=== PATIENT | female | born 1995 | race Caucasian/White ===

== ENCOUNTER 2016-04-30 23:25 | Emergency (ER) | payer OTHER ==
[2016-05-01] MEDS ORDERED: oxyCOD/ACETAMIN 5 MG/325 MG TABLET PO STA (03:46)
[2016-05-01] MEDS ORDERED: oxyCODONE/ACET 5/325 Prepack 4 PO ONE (03:51)
[2016-05-01] MEDS ORDERED: oxyCOD/ACETAMIN 5 MG/325 MG TABLET PO ONE (03:53)
== END 2016-05-01 04:00 | disposition home or self-care (01) ==
DX: R10.2 Pelvic and perineal pain (principal); R11.0 Nausea; F17.200 Nicotine dependence, unspecified, uncomplicated
CPT/HCPCS: 36415; 80053; 81003; 81025; 83690; 85025; 99283; A9270

== ENCOUNTER 2016-05-14 08:49 | Outpatient (CLI) | payer OTHER ==
[2016-05-14] MEDS ORDERED: GADOBUTROL 15 MMOL/15 ML VIAL IVP ONE (09:35)
== END 2016-05-14 08:50 | disposition home or self-care (01) ==
DX: M79.605 Pain in left leg (principal); M79.604 Pain in right leg
CPT/HCPCS: 73725; A9585

== ENCOUNTER 2016-06-28 21:32 | Emergency (ER) | payer OTHER | END 2016-06-28 22:27 | disposition home or self-care (01) | DX: R30.0 Dysuria (principal) ==

== ENCOUNTER 2016-07-17 08:37 | Day surgery (SDC) | payer OTHER ==
[~2016-07-17 08:37] MED LIST: ACETAMINOPHEN 1,000 MG/100 ML 100 ML IV ONE; CELECOXIB 100 MG CAPSULE PO ONE; ceFAZolin 2 GM/50 ML 50 ML IV ONE
[2016-07-17] MEDS ORDERED: LACTATED RINGERS 1,000 ML IV ONE ×2 (08:43→12:50)
[2016-07-17] MEDS ORDERED: MIDAZOLAM 2 MG/2 ML VIAL ONE ×2 (10:11→14:29)
[2016-07-17] MEDS ORDERED: BUPIVACAINE 0.5% PF 30 ML VIAL INFIL ONE ×2 (11:44→12:31)
[2016-07-17] MEDS ORDERED: LIDOCAINE-MPF 2% 5 ML VIAL IM ONE (12:08)
[2016-07-17] MEDS ORDERED: PROPOFOL 200 MG/20 ML VIAL IVP ONE (12:08)
[2016-07-17] MEDS ORDERED: ONDANSETRON 4 MG/2 ML VIAL IVP ONE (12:08)
[2016-07-17] MEDS ORDERED: fentaNYL 100 MCG/2 ML VIAL IVP ONE (12:08)
[2016-07-17] MEDS ORDERED: DEXAMETHASONE 4 MG/ML VIAL IVP ONE (12:08)
[2016-07-17] MEDS ORDERED: MIDAZOLAM 2 MG/2 ML VIAL IVP ONE (12:08)
[2016-07-17] MEDS: HYDROmorphone 1 MG/ML SYRINGE ONE ×2 (12:57→13:03)
[2016-07-17] MEDS ORDERED: oxyCOD/ACETAMIN 5 MG/325 MG TABLET PO ONE (13:24)
== END 2016-07-17 08:38 | disposition home or self-care (01) ==
PROC: 0KNT0ZZ Release Left Lower Leg Muscle, Open Approach (ICD-10-PCS; principal; 2016-07-17 10:30)
DX: T79.A22A Traumatic compartment syndrome of left lower extremity, initial encounter (principal); X58.XXXA Exposure to other specified factors, initial encounter; F17.200 Nicotine dependence, unspecified, uncomplicated
CPT/HCPCS: 27600; 81025; A9270; J0131; J0690; J1170; J7120

== ENCOUNTER 2016-09-04 07:49 | Day surgery (SDC) | payer OTHER ==
[~2016-09-04 07:49] MED LIST changes: -ACETAMINOPHEN 1,000 MG/100 ML 100 ML IV ONE
[2016-09-04 08:17] LABS: HCG UR QUAL NEGATIVE
[2016-09-04] MEDS ORDERED: LACTATED RINGERS 1,000 ML IV ONE ×3 (08:39→09:25)
[2016-09-04] MEDS ORDERED: BUPIVACAINE 0.5% PF 30 ML VIAL SUBQ ONE ×2 (09:24→11:20)
[2016-09-04] MEDS ORDERED: DEXAMETHASONE 4 MG/ML VIAL IVP ONE (10:00)
[2016-09-04] MEDS ORDERED: fentaNYL 100 MCG/2 ML VIAL IVP ONE (10:00)
[2016-09-04] MEDS ORDERED: PROPOFOL 200 MG/20 ML VIAL IVP ONE (10:00)
[2016-09-04] MEDS ORDERED: LIDOCAINE-PF 2% 10 ML AMP SUBQ ONE (10:00)
[2016-09-04] MEDS ORDERED: MIDAZOLAM 2 MG/2 ML VIAL IVP ONE (10:00)
[2016-09-04] MEDS ORDERED: ONDANSETRON 4 MG/2 ML VIAL IVP ONE (10:00)
[2016-09-04] MEDS ORDERED: ACETAMINOPHEN 1,000 MG/100 ML VIAL IV ONE (10:00)
[2016-09-04] MEDS ORDERED: fentaNYL 100 MCG/2 ML VIAL ONE (11:29)
[2016-09-04] MEDS ORDERED: ONDANSETRON 4 MG/2 ML VIAL ONE (12:07)
[2016-09-04] MEDS ORDERED: oxyCOD/ACETAMIN 5 MG/325 MG TABLET PO ONE (12:30)
[2016-09-04 12:43] VITALS: BP 102/67
--- NOTE | 2016-09-07 08:07 | OPERATIVE REPORT ---
DATE OF SURGERY: 09/04/2016 00:00:00 OPERATIVE SURGEON: Commander Anand Rodgers, [facility] PREOPERATIVE DIAGNOSIS: Right leg exertional compartment syndrome. OPERATIVE DIAGNOSIS: Right leg exertional compartment syndrome. OPERATIVE PROCEDURE PERFORMED: Right leg 4-compartment fasciotomies. ANESTHESIA PROVIDER: Diego Miller CRNA. ANESTHESIA TECHNIQUE: General anesthesia via LMA with a femoral popliteal nerve block and local anesthesia at the incision sites. CIRCULATING NURSE: Feroz Patricia RN. DIRECTOR CLINICAL RESEARCH: Ms. MorrellOskar Norma Shakira. START TIME: 0959 hours. CLOSE TIME: 1112 hours. INJECTED SUBSTANCES INCLUDE: Marcaine 0.5% plain 30 mL at the incision site. IV FLUIDS: 500 ML Lactated Ringer's. TEST: hCG was negative. PREOPERATIVE ANTIBIOTICS: Ancef 2 grams ESTIMATED BLOOD LOSS: 5 mL. PREOPERATIVE PREP: ChloraPrep. FINAL COUNTS: Correct. The patient did have a KITA hose and foot pump in place and functioning prior to induction of anesthesia on the left lower extremity. TOURNIQUET TIME: 69 minutes at 250 mmHg. COMPLICATIONS: None. 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 Preoperative workup including vascular studies and Gabriella compartment pressure testing was consistent with exertional compartment syndrome. She was counseled, as far as the findings and options for operative versus nonoperative management , including the risks, benefits, alternatives, and expectations to both operative and nonoperative management, and she preferred to have surgery and received command authorization for surgery. She did have prior left lower extremity 4-compartment fasciotomies performed on 17 July 2016, currently with good relief and desired similar surgery on the right lower extremity. On the day of surgery, she identified the operative site to be her left lower extremity, and it was initialed by the operative surgeon. The patient received a popliteal -femoral nerve block, was then taken back to the operating room, placed in the supine position, and underwent general anesthesia via LMA. After adequate anesthetic control, the patient had a hip bump placed and a tourniquet on her proximal right thigh. She then underwent ChloraPrep and standard sterile draping, followed by a surgical pause to confirm the proper patient, procedure, operative site, position, prophylactic antibiotics, surgical initials, and surgical instrumentation in accordance with the [place] Protocol Procedure Verification. Additional ChloraPrep was then applied to the exposed operative skin and allowed to dry for 3 minutes. Her bony landmarks were outlined with a skin marker along with the incision site for both medial and lateral leg incisions measuring 12 cm. The lower extremity underwent Esmarch exsanguination and inflation of the tourniquet to 250 mmHg. Surgery began with incision over the lateral leg with Bovie electrocautery for hemostasis and blunt dissection down to the fascia, while observing and protecting the superficial branch of the peroneal nerve. The septum was identified, the anterior compartment and lateral compartment fascia nicked, and then Metzenbaum scissors were used to dissect the soft tissue both superior and deep to the fascia. This was then followed by fasciotomies performed under direct visualization to both the anterior and lateral compartments, extending more distal and proximal than the actual incision itself. The wound was then copiously irrigated after confirming full length fasciotomies. Attention was then focused to the medial aspect of the leg, where an incision was placed approximately 1-1/2 fingerbreadths medial to the posterior medial edge of the tibia, followed by an incision with Bovie electrocautery for hemostasis and blunt dissection down to the fascia while identifying and protecting the saphenous nerve and vein. Superficial posterior fascia was identified and released, and further deep dissection was performed to locate the fascia of the posterior deep compartment. This was then elevated off the posterior aspect of the tibia for approximately 12 cm. The wounds were then copiously irrigated, both incisions, and closed with 2-0 Vicryl and 3-0 Monocryl. Following this, the incisions were injected with 0.5 plain Marcaine for postoperative pain control per recommendation of Anesthesia. The wounds were then covered with Mastisol, Steri-Strips, Xeroform, sterile plain gauze, sterile Webril, and an Fitz bandage from mid foot to the knee. She was then placed into a star sleeve foam immobilization device due to the fact that we do not have a CAM boot at the hospital, with her ankle in neutral position. The tourniquet was then deflated. The patient had a warm, pink foot with cap refill less than 2 seconds. She was extubated in the operating room, taken to recovery room in stable condition, and tolerated the procedure well. Her significant other, Mr. Ngo, was then notified via telephone of the intraoperative findings, procedure performed, and postop instructions. Edited and electronically signed: CDR Anand Rodgers [facility] [id number] ([facility] has no access to [employer] ) JOB #: [id number] EXT JOB #:[id number] GREGG
== END 2016-09-04 07:50 | disposition home or self-care (01) ==
LOC: SDS 07:49
PROVIDERS: ATTEND Orthopaedic Surgery
PROC: 0KNS0ZZ Release Right Lower Leg Muscle, Open Approach (ICD-10-PCS; principal; 2016-09-04 09:15)
DX: T79.A21A Traumatic compartment syndrome of right lower extremity, initial encounter (principal); X50.9XXA Other and unspecified overexertion or strenuous movements or postures, initial encounter; F17.200 Nicotine dependence, unspecified, uncomplicated
CPT/HCPCS: 27602; 81025; A9270; J0131; J0690; J7120

== ENCOUNTER 2016-09-10 21:49 | Emergency (ER) | payer OTHER ==
[2016-09-10] MEDS ORDERED: oxyCOD/ACETAMIN 5 MG/325 MG TABLET PO STA (22:33)
[2016-09-10] MEDS ORDERED: oxyCOD/ACETAMIN 5 MG/325 MG TABLET PO ONE (22:36)
[2016-09-10] MEDS ORDERED: LIDOCAINE PATCH 5% TOP SCH (23:00)
--- NOTE | 2016-09-11 00:11 | Ultrasound Report ---
EXAM: RIGHT LOWER EXTREMITY VENOUS ULTRASOUND EXAM DATE: 09/10/2016 11:49 PM. CLINICAL HISTORY: Leg pain and swelling post surgery. Status post right leg fasciotomy. COMPARISON: None. TECHNIQUE: Real-time sonographic vascular imaging was performed by the trouble clerk through the lower extremity utilizing both color-flow and Doppler spectral analysis. Multiple livestock sales representative static ken ges were saved for review. FINDINGS: Common Femoral Vein (CFV): Normal. CFV-GSV Junction: Normal. Profunda Femoral Vein (PFV): Normal. Femoral Vein (FV) Prox: Normal. Femoral Vein (FV) Mid: Normal. Femoral Vein (FV) Dist: Normal. Popliteal Vein: Normal. Posterior Tibial Veins: Limited visualization Peroneal Veins: Not seen. Limited visualization of the calf veins due to bandage and recent surgery scar. Calf veins are not we ll seen. At the right medial mid to distal calf in the soft tissue, there is a 4.1 x 0.8 x 2.3 cm complex flui d collection with internal echoes and septations. This could represent a liquefying hematoma. Abscess not excluded in the appropriate clinical setting. There appears to be a right ankle effusion IMPRESSION: 1. No evidence for deep venous thrombosis. 2. Limited visualization as above. 3. At the right medial mid to distal calf in the soft tissue, there is a 4.1 x 0.8 x 2.3 cm complex f luid collection with internal echoes and septations. This could represent a liquefying hematoma. Absc ess not excluded in the appropriate clinical setting. 4. There appears to be a right ankle effusion. [facility] Referring Provider Line: [phone] SITE ID: [id number]
[2016-09-11] MEDS ORDERED: METOCLOPRAMIDE 10 MG TABLET PO STA (00:49)
--- NOTE | 2016-09-11 00:54 | ED Physician Documentation ---
PD HPI LOWER EXT INJURY - Stated complaint Stated Complaint: RT LEG PX - Chief complaint Chief Complaint: Ext Problem - History obtained from History obtained from: Patient, Friend - History of Present Illness PD HPI LOW EXT INJURY LOCATION: Left, Lower leg Type of injury: Laceration Where injury occurred: Home Timing - onset: How many days ago (6) Timing - details: Abrupt onset Associated symptoms: Discolored Contributing factors: Prior ortho surgery Similar symptoms before: Work up / diagnostics, Treatment, Follow up Recently seen: Surgery - Additional information Additional information: Patient is a 21 year old female with fasciotomy performed on 09/05/16 who is presenting to the emergency department for worsening pain in swelling her surgical leg. patient states that she saw the surgeon yesterday and that an ultrasound did not show a dvt. patient states that the pain persisted today even though she was taking her pain medications. Review of Systems Constitutional: denies: Fever, Chills Eyes: denies: Loss of vision, Decreased vision Ears: denies: Ear pain, Drainage/discharge Nose: denies: Rhinorrhea / runny nose Throat: denies: Oral lesions / sores, Sore throat Cardiac: denies: Chest pain / pressure GI: denies: Abdominal Pain, Nausea, Vomiting Skin: reports: Rash, Lesions Musculoskeletal: reports: Extremity pain, Extremity swelling, Joint swelling Neurologic: denies: Generalized weakness, Focal weakness, Numbness Immunocompromised: denies: Immunocompromised PD PAST MEDICAL HISTORY - Past Medical History Past Medical History: Yes Cardiovascular: Murmur Respiratory: None Endocrine/Autoimmune: None GI: None 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: Ovarian cysts : None HEENT: None Psych: None Musculoskeletal: None Derm: None - Past Surgical History Past Surgical History: Yes HEENT: Myringotomy (tubes), Tonsil/Adenoidectomy - Present Medications Home Medications: Ambulatory Orders Medication Instructions Recorded Confirmed Celecoxib [Celebrex] 400 mg PO DAILY 09/10/16 09/10/16 Cyclobenzaprine [Flexeril] 10 mg PO DAILY 09/10/16 09/10/16 Gabapentin 300 mg PO DAILY 09/10/16 09/10/16 Oxycodone HCl [Oxycontin] 20 tab PO BID 09/10/16 09/10/16 Oxycodone HCl/Acetaminophen 1 tab PO Q4HR PRN 09/10/16 09/10/16 [Percocet 5-325 mg Tablet] Metoclopramide [Reglan] 10 mg PO Q8H PRN #15 tablet 09/11/16 - Allergies Allergies/Adverse Reactions: Allergies Allergy/AdvReac Type Severity Reaction Status Date / Time nickel Allergy Rash Verified 09/10/16 21:53 - Social History Does the pt smoke?: Yes Smoking Status: Current every day smoker Does the pt drink ETOH?: Yes Does the pt have substance abuse?: No - Immunizations Immunizations are current?: Yes - POLST Patient has POLST: No PD ED PE EXPANDED - Extremities Extremities: Right ankle (two surgical incisions, well healing with dependent ecchymosis, edema of right lower extremity. ), Pedal edema R, Pedal Pulses Present, Motor intact, Sensory intact, Vascular intact, Tendon intact Results - Vitals Vitals: Vital Signs - 24 hr 09/10/16 21:54 Temperature 36.6 C Heart Rate 83 Respiratory 16 Rate Blood Pressure 151/94 H O2 Saturation 100 Oxygen O2 Source Room air - Rads (name of study) ultrasound Radiology: Final report received (no dvt, [id number] heterogenous fluid collection) PD MEDICAL DECISION MAKING - ED course Complexity details: reviewed old records, reviewed results, re-evaluated patient , considered differential, d/w patient, d/w community health consultant ED course: Patient was seen and examined at bedside. Patient was treated with percocet for pain and sent for imaging. When patietn returned the results were reviewed. there was most likely a hematoma but abscess could not be excluded. the option of peripheral drainage was give to the patient, but she stated she would follow up with her surgeon tomorrow. Multiple attempts were made to the nav armor reconnaissance vehicle driver physician but they never answered. Patient was well appearing and showed no signs of disseminated disease. patient was stable for discharge with outpatient follow up. Departure - Departure Disposition: 01 Home, Self Care Clinical Impression: Surgical complication Condition: Good Instructions: ED Hematoma Follow-Up: primary,orthopedic [Other] - Tomorrow Prescriptions: Metoclopramide [Reglan] 10 mg PO Q8H PRN #15 tablet PRN Reason: Nausea / Vomiting Comments: There was no sign of a dvt today but there is a fluid collection near the surgical site. The only way to tell what it is exactly is to drain some of the material. You should call your surgeon tomorrow to schedule a follow up appointment. You should continue with the same pain management, but you should try to keep the leg elevated above the heart. You can return to the emergency department at any time for new, worsening or uncontrollable symptoms.
[2016-09-11] MEDS ORDERED: LIDOCAINE PATCH 5% TOP ONE (00:57)
[2016-09-11] MEDS ORDERED: METOCLOPRAMIDE 10 MG TABLET ONE (00:57)
[2016-09-11 01:01] VITALS: BP 117/64
== END 2016-09-11 01:21 | disposition home or self-care (01) ==
LOC: ED 21:49
DX: M96.89 Other intraoperative and postprocedural complications and disorders of the musculoskeletal system (principal); F17.200 Nicotine dependence, unspecified, uncomplicated
CPT/HCPCS: 93971; 99283; A9270

== ENCOUNTER 2016-09-12 20:08 | Emergency (ER) | payer OTHER ==
--- NOTE | 2016-09-12 21:32 | ED Physician Documentation ---
History of Present Illness - Stated complaint Stated Complaint: R LEG PX - Chief complaint Chief Complaint: Ext Problem - History obtained from History obtained from: Patient - History of Present Illness Pain level now: 8 Improved by: no ameliorating factors Worsened by: dependent position RLE - Additonal information Additional information: patient had fasciotomy 09/04 for compartment syndrome and, prior to d/c from hospital she fell onto the RLE, exacerbating her RLE pain. she takes percocet and oxycontin for the post-operative pain but had inadequate control of the pain on 09/10 and thus came to this ED, T+R after pain was adequately controlled. She has had two RLE ultrasounds in the past few days which were negative for DVT, and both evidenced a fluid collection adjacent to the incision site with findings suspicious for hematoma that was liquifying. She was seen yesterday by her doctor and blood tests, including CBC, were unremarkable. She returns to ED at this time due to pain that is again not adequately controlled with her pain medications. She is concerned about the degree of swelling and bruising of the distal leg and the ankle. She says that there was some question as to whether she might have broken something (RLE) when she fell while in the hospital (and that this might have been going unnoticed due to her non-weightbearing on RLE. Review of Systems Constitutional: denies: Fever Cardiac: denies: Chest pain / pressure Respiratory: denies: Dyspnea Musculoskeletal: reports: Extremity pain, Extremity swelling Neurologic: reports: Numbness (RLE distal to knee). denies: Focal weakness PD PAST MEDICAL HISTORY - Past Medical History Past Medical History: Yes Cardiovascular: Murmur Respiratory: None Neuro: None Endocrine/Autoimmune: None GI: None ICU SPECIALIST: Ovarian cysts : None HEENT: None Psych: None Musculoskeletal: None Derm: None - Past Surgical History Past Surgical History: Yes HEENT: Myringotomy (tubes), Tonsil/Adenoidectomy - Present Medications Home Medications: Ambulatory Orders Medication Instructions Recorded Confirmed Celecoxib [Celebrex] 400 mg PO DAILY 09/10/16 09/10/16 Cyclobenzaprine [Flexeril] 10 mg PO DAILY 09/10/16 09/10/16 Gabapentin 300 mg PO DAILY 09/10/16 09/10/16 Oxycodone HCl [Oxycontin] 20 tab PO BID 09/10/16 09/10/16 Oxycodone HCl/Acetaminophen 1 tab PO Q4HR PRN 09/10/16 09/10/16 [Percocet 5-325 mg Tablet] Metoclopramide [Reglan] 10 mg PO Q8H PRN #15 tablet 09/11/16 - Allergies Allergies/Adverse Reactions: Allergies Allergy/AdvReac Type Severity Reaction Status Date / Time nickel Allergy Rash Verified 09/10/16 21:53 - Social History Does the pt smoke?: Yes Smoking Status: Current every day smoker Does the pt drink ETOH?: Yes Does the pt have substance abuse?: No - Immunizations Immunizations are current?: Yes - POLST Patient has POLST: No PD ED PE NORMAL - Vitals Vital signs reviewed: Yes - General General: Alert and oriented X 3, No acute distress, Well developed/nourished PD ED PE EXPANDED - Extremities Extremities: Other (vertical fasciotomy surgical sites are C/D/I without surrounding erythema; there is no discharge nor fluctuance. the RLE has purple echymosis at the ankle, both lateral and medial aspects, with mild pitting edema. the right foot is warm, pink, with 2+ DP pulse, LTS intact, brisk capillary refill) Results - Vitals Vitals: Vital Signs - 24 hr 09/12/16 09/12/16 20:12 23:14 Heart Rate 91 64 Respiratory 17 17 Rate Blood Pressure 131/85 H 125/66 O2 Saturation 98 100 Oxygen O2 Source Room air - Rads (name of study) right tib/fib xrays Radiology: Prelim report reviewed, See rad report right ankle xrays Radiology: Prelim report reviewed, See rad report PD MEDICAL DECISION MAKING - ED course Complexity details: reviewed old records, reviewed results, re-evaluated patient , considered differential, d/w patient Departure - Departure Disposition: 01 Home, Self Care Clinical Impression: Pain in extremity Qualifiers: Extremity pain location: lower extremity Laterality: right Qualified Code(s): M79.604 - Pain in right leg Condition: Good Instructions: ED Post Op Pain Follow-Up: KIZZY Leblanc [Provider Group] Discharge Date/Time: 09/12/16 23:46
[2016-09-12] MEDS ORDERED: HYDROmorphone 1 MG/ML SYRINGE IM STA ×2 (21:56→23:27)
[2016-09-12] MEDS ORDERED: HYDROmorphone 1 MG/ML SYRINGE ONE ×2 (21:59→23:28)
--- NOTE | 2016-09-12 22:33 | XRAY Preliminary Report ---
Exam: XR Ankle 3 View RT IMPRESSION: Normal ankle radiography. [facility] SITE ID: [id number]
--- NOTE | 2016-09-12 22:33 | XRAY Preliminary Report ---
Exam: XR Tib/Fib RT IMPRESSION: Normal tibia/fibula radiography. [facility] SITE ID: [id number]
--- NOTE | 2016-09-12 22:36 | XRAY Report ---
EXAM: RIGHT ANKLE RADIOGRAPHY EXAM DATE: 09/12/2016 10:04 PM. CLINICAL HISTORY: Fall (earlier this month, but has been NWB). COMPARISON: None. TECHNIQUE: 3 views. FINDINGS: Bones: Normal. No fractures or bone lesions. Joints: Normal. No effusion. No subluxations. The ankle mortise is normally aligned. Soft Tissues: Normal. No soft tissue swelling. IMPRESSION: Normal ankle radiography. [facility] Referring Provider Line: [phone] SITE ID: [id number]
--- NOTE | 2016-09-12 22:44 | XRAY Report ---
EXAM: RIGHT TIBIA/FIBULA RADIOGRAPHY EXAM DATE: 09/12/2016 10:04 PM. CLINICAL HISTORY: Fall (earlier this month, but has been non-weight bearing). COMPARISON: None. TECHNIQUE: 2 views. FINDINGS: Bones: Normal. No fracture or bone lesion. Joints: The visualized knee and ankle joints are normal. No effusions. Soft Tissues: Normal. No soft tissue swelling. IMPRESSION: Normal tibia/fibula radiography. [facility] Referring Provider Line: [phone] SITE ID: [id number]
[2016-09-12 23:15] VITALS: BP 125/66
== END 2016-09-12 23:46 | disposition home or self-care (01) ==
LOC: ED 20:08
DX: M79.604 Pain in right leg (principal); R20.0 Anesthesia of skin; F17.200 Nicotine dependence, unspecified, uncomplicated
CPT/HCPCS: 73590; 73610; 96372; 99283; J1170

== ENCOUNTER 2016-09-14 19:42 | Emergency (ER) | payer OTHER ==
[2016-09-14] MEDS ORDERED: oxyCOD/ACETAMIN 5 MG/325 MG TABLET PO STA (20:28)
[2016-09-14] MEDS ORDERED: oxyCOD/ACETAMIN 5 MG/325 MG TABLET PO ONE (20:39)
--- NOTE | 2016-09-14 22:30 | Ultrasound Preliminary Report ---
Exam: US Duplex Lwr Ext Arterial RT IMPRESSION: 1. Unremarkable right lower extremity arterial Doppler evaluation. 2. Medial right calf fluid collection, likely chronic hematoma. [facility] SITE ID: [id number]
--- NOTE | 2016-09-14 22:51 | ED Physician Documentation ---
PD HPI LOWER EXT INJURY - Stated complaint Stated Complaint: R LEG PX - Chief complaint Chief Complaint: Ext Problem - History obtained from History obtained from: Patient - History of Present Illness PD HPI LOW EXT INJURY LOCATION: Right, Lower leg Type of injury: Other (9 days status post 4 compartment fasciotomy of the right lower leg.) Recently seen: Emergency Dept (2 days ago.) - Treatment prior to arrival Treatment prior to arrival: Percocet. - Additional information Additional information: The patient is a 21-year-old female who presents with pain and swelling of her right lower leg. She has a history of chronic exertional compartment syndrome, and underwent 4 compartment fasciotomy upper right lower leg 9 days ago. She had undergone nerve block for the surgery, and when ambulating in PACU postsurgery, she fell. She is concerned about possibility of injury resulting from the fall. She was seen in the emergency department here 2 days ago and x- ray of the right lower extremity revealed no bony abnormality. She returns today because of continued pain and swelling. She had undergone similar fasciotomy of her left lower leg 6 weeks ago and did not have any similar symptoms. Review of Systems Constitutional: denies: Fever Nose: denies: Congestion Cardiac: denies: Chest pain / pressure Respiratory: denies: Dyspnea, Cough GI: denies: Abdominal Pain, Nausea, Vomiting : denies: Dysuria Skin: denies: Rash Musculoskeletal: reports: Extremity pain (right lower leg), Extremity swelling ( right lower leg). 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 : None HEENT: None Psych: None Musculoskeletal: None Derm: None Other Past Medical History: sports induced compartment syndrome - Past Surgical History Past Surgical History: Yes HEENT: Myringotomy (tubes), Tonsil/Adenoidectomy - Present Medications Home Medications: Ambulatory Orders Medication Instructions Recorded Confirmed Celecoxib [Celebrex] 400 mg PO DAILY 09/10/16 09/10/16 Cyclobenzaprine [Flexeril] 10 mg PO DAILY 09/10/16 09/10/16 Gabapentin 300 mg PO DAILY 09/10/16 09/10/16 Oxycodone HCl [Oxycontin] 20 tab PO BID 09/10/16 09/10/16 Oxycodone HCl/Acetaminophen 1 tab PO Q4HR PRN 09/10/16 09/10/16 [Percocet 5-325 mg Tablet] Metoclopramide [Reglan] 10 mg PO Q8H PRN #15 tablet 09/11/16 - Allergies Allergies/Adverse Reactions: Allergies Allergy/AdvReac Type Severity Reaction Status Date / Time nickel Allergy Rash Verified 09/10/16 21:53 - Social History Does the pt smoke?: Yes Smoking Status: Current every day smoker Does the pt drink ETOH?: Yes Does the pt have substance abuse?: No - Immunizations Immunizations are current?: Yes - POLST Patient has POLST: No PD ED PE NORMAL - Vitals Vital signs reviewed: Yes (borderline hypertension initially.) - General General: Alert and oriented X 3, Well developed/nourished - HEENT HEENT: Atraumatic - Cardiac Cardiac: RRR - Respiratory Respiratory: No respiratory distress, Clear bilaterally - Abdomen Abdomen: Soft, Non tender - Derm Derm: No rash - Extremities Extremities: Other (Fasciotomy wounds of the right lower leg appear to be healing without any evidence of infection. There is soft tissue swelling noted at the distal aspect of the anteromedial wound. There is associated ecchymosis. There is slight warmth, but no erythema. Distal neurovascular is intact.) - Neuro Neuro: Alert and oriented X 3, No motor deficit, No sensory deficit Results - Vitals Vitals: Oxygen O2 Source Room air - Rads (name of study) Doppler U/S right leg Radiology: Prelim report reviewed, See rad report (Unremarkable right lower extremity arterial Doppler evaluation. Medial right calf fluid collection, likely chronic hematoma.) PD MEDICAL DECISION MAKING - ED course Complexity details: reviewed old records, reviewed results, re-evaluated patient , considered differential, d/w patient, d/w family ED course: The patient's presentation is most consistent with postsurgical hematoma in the right lower leg. Duplex ultrasound reveals no evidence of thrombus, but does reveal the fluid collection in the medial calf, suggestive of hematoma. Treatment in the emergency room included administration of Percocet 1 tablet orally. I discussed with the patient and her friends the results of the ultrasound, expected course of healing, symptomatic treatment and outpatient follow-up, as well as potentially worrisome signs or symptoms that should prompt reevaluation in the emergency department. Departure - Departure Disposition: 01 Home, Self Care Clinical Impression: Pain of lower extremity Qualifiers: Laterality: right Qualified Code(s): M79.604 - Pain in right leg Hematoma, postoperative Qualifiers: Laterality: right Condition: Stable Instructions: ED Hematoma Follow-Up: [facility]IZ[facility] Leblanc [Provider Group] Comments: Keep your right leg elevated as much the time as possible. You can use pain medication as previously prescribed. Follow up with your orthopedic surgeon as scheduled. Return to the emergency department if you develop increasing pain, any sign of infection, or otherwise worsening symptoms. Discharge Date/Time: 09/14/16 23:08
--- NOTE | 2016-09-14 22:55 | Ultrasound Report ---
EXAM: RIGHT LOWER EXTREMITY ARTERIAL DOPPLER ULTRASOUND EXAM DATE: 09/14/2016 08:51 PM. CLINICAL HISTORY: Right leg pain and swelling. COMPARISON: None. TECHNIQUE: Real-time sonographic vascular imaging was performed by the qualitative researcher, utilizing color-f low, Doppler flow, and spectral analysis. Multiple textiles sales representative static images were saved for review . FINDINGS: Archer scale evaluation of the right lower extremity arteries demonstrates no significant tarik que. There is a 6.3 x 1.0 x 2.9 cm soft tissue fluid collection containing low-level internal echoes medial aspect of the calf. Arterial Doppler evaluation as follows: Right Lower Extremity: CADDYMASTER: PSV 158 cm/sec, triphasic waveform. PSFA: PSV 24 cm/sec, triphasic waveform. MSFA: PSV 86 cm/sec, triphasic waveform. DSFA: PSV 28 cm/sec, triphasic waveform. PFA: PSV 77 cm/sec, biphasic waveform. POP: PSV 57 cm/sec, triphasic waveform. KRISTOFER: PSV 42 cm/sec, biphasic waveform. AIR HAMMER OPERATOR: PSV 71 cm/sec, biphasic waveform. YUNIER: PSV 40 cm/sec, biphasic waveform. DPA: PSV 35 cm/sec, triphasic waveform. IMPRESSION: 1. Unremarkable right lower extremity arterial Doppler evaluation. 2. Medial right calf fluid collection, likely chronic hematoma. [facility] Referring Provider Line: [phone] SITE ID: [id number]
[2016-09-14 23:22] VITALS: BP 102/60
== END 2016-09-14 23:08 | disposition home or self-care (01) ==
LOC: ED 19:42
DX: L76.32 Postprocedural hematoma of skin and subcutaneous tissue following other procedure (principal); Y83.8 Other surgical procedures as the cause of abnormal reaction of the patient, or of later complication, without mention of misadventure at the time of the procedure; G89.18 Other acute postprocedural pain; F17.200 Nicotine dependence, unspecified, uncomplicated
CPT/HCPCS: 93926; 99283; A9270

== ENCOUNTER 2017-01-12 14:28 | Emergency (ER) | payer OTHER ==
[2017-01-12 14:48] VITALS: BP 131/82
[2017-01-12] MEDS ORDERED: DEXAMETHASONE 10 MG/ML VIAL PO STA (16:12)
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
[2017-01-12] MEDS ORDERED: DEXAMETHASONE 10 MG/ML VIAL ONE (16:24)
== END 2017-01-12 16:27 | disposition home or self-care (01) ==
LOC: ED 14:28
DX: M54.12 Radiculopathy, cervical region (principal); R03.0 Elevated blood-pressure reading, without diagnosis of hypertension; F17.200 Nicotine dependence, unspecified, uncomplicated
CPT/HCPCS: 99283

== ENCOUNTER 2017-05-13 14:30 | Emergency (ER) | payer OTHER ==
[2017-05-13 14:38] VITALS: BP 128/83
[2017-05-13] MEDS ORDERED: HYDROcod/ACETAM 5/325 MG TABLET PO STA (15:03)
--- NOTE | 2017-05-13 15:16 | ED Physician Documentation ---
History of Present Illness - Stated complaint Stated Complaint: PAIN/NUMBNESS L ARM AND SHOULDER - Chief complaint Chief Complaint: Ext Problem - History obtained from History obtained from: Patient (pt is here with left shoulder pain. states that this has been going on for a couple years now. has seen her primary care provier and physical therapy. she states that she went to PT the other day and since then her lefts houlder has been more painful, and her left arm has been tingling and painful. no trauma.) Review of Systems Constitutional: denies: Fever, Chills Respiratory: denies: Dyspnea, Cough, Hemoptysis GI: denies: Abdominal Pain Skin: denies: Rash, Lesions Musculoskeletal: reports: Extremity pain (left arm), Joint pain (left shoulder) . 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: Ovarian cysts : None HEENT: None Psych: None Musculoskeletal: None Derm: None - Past Surgical History Past Surgical History: Yes HEENT: Myringotomy (tubes), Tonsil/Adenoidectomy - Present Medications Home Medications: Ambulatory Orders Medication Instructions Recorded Confirmed Gabapentin 300 mg PO DAILY 09/10/16 05/13/17 Methocarbamol [Robaxin] 500 mg PO Q6HR PRN 05/13/17 05/13/17 - Allergies Allergies/Adverse Reactions: Allergies Allergy/AdvReac Type Severity Reaction Status Date / Time nickel Allergy Rash Verified 01/12/17 14:48 - Social History Does the pt smoke?: Yes Smoking Status: Current every day smoker Does the pt drink ETOH?: Yes Does the pt have substance abuse?: No - Immunizations Immunizations are current?: Yes - POLST Patient has POLST: No PD ED PE NORMAL - General General: Alert and oriented X 3, No acute distress - HEENT HEENT: Moist mucous membranes - Neck Neck: Supple, no meningeal sign - Cardiac Cardiac: RRR, No murmur - Respiratory Respiratory: No respiratory distress, Clear bilaterally - Derm Derm: Normal color, Warm and dry - Extremities Extremities: Other (TTP at all point of palpation of the right shoulder. seemed to be most tender over the medial border of the scapula. ) - Neuro Neuro: Alert and oriented X 3, No motor deficit, No sensory deficit Results - Vitals Vitals: Vital Signs - 24 hr 05/13/17 14:36 Temperature 36.7 C Heart Rate 83 Respiratory 17 Rate Blood Pressure 128/83 H O2 Saturation 100 Oxygen O2 Source Room air PD MEDICAL DECISION MAKING - ED course Complexity details: considered differential, d/w patient ED course: pt with tenderness over all point of palpation of the left shoulder. Doubt fracture. will hold on x-rays. suspect MSK. her sx are somewhat similar to thoracic outlet syndrome. discussed this with her. [place] Departure - Departure Disposition: Home, Self Care Clinical Impression: Left shoulder pain Condition: Good Instructions: ED RICE Follow-Up: primary, care provider [Other] Comments: Recommend that you talk to your physical therapy provider and [place] about possible [place]o consult. continue with your medicaions that you already have. return to the ER for any new symptoms.
== END 2017-05-13 15:29 | disposition home or self-care (01) ==
LOC: ED 14:30
DX: M25.512 Pain in left shoulder (principal); F17.200 Nicotine dependence, unspecified, uncomplicated
CPT/HCPCS: 99282; 99283; A9270

== ENCOUNTER 2017-05-28 11:48 | Outpatient (CLI) | payer OTHER ==
--- NOTE | 2017-05-28 16:16 | MRI Report ---
EXAM: MRI CERVICAL SPINE WITHOUT CONTRAST EXAM DATE: 05/28/2017 12:40 PM. CLINICAL HISTORY: Intermittent neck pain for 1-1.5 years. Bilateral arm numbness and tingling, left m ore than right. Radiculopathy, cervical region. COMPARISONS: None. TECHNIQUE: Multiplanar, multisequence T1-weighted and fluid-sensitive sequences of the cervical spine without contrast. Other: None. FINDINGS: Neurologic Structures: There is an approximately 7 x 3 mm mildly T2 hyperintense and slightly T1 hypo intense focus at the left inferolateral aspect of the julio césar (sagittal image 4). No signal abnormality in the visualized spinal cord. Alignment: No scoliosis or spondylolisthesis. Bone Marrow: No gross fractures or bone lesions. No marrow edema. Interspace Levels/Facets: C1-C2: Unremarkable. C2-C3: Unremarkable. C3-C4: Unremarkable. C4-C5: Unremarkable. C5-C6: Unremarkable. C6-C7: Minimal disk bulge. No stenoses. C7-T1: Unremarkable. Musculature: Normal. No edema or fatty atrophy. Other: The paravertebral and prevertebral soft tissues are normal. IMPRESSION: 1. Minimal disk bulge at C6-C7. No stenoses. 2. An indeterminate 7 x 3 mm mildly T2 hyperintense and slightly T1 hyperintense focus at the left in ferolateral aspect of the julio césar. Differential may include a focus of demyelination, vascular insult, o r other lesion. Consider further evaluation with a follow-up brain MRI without and with intravenous c ontrast. [facility] Referring Provider Line: [phone] SITE ID: [id number]
== END 2017-05-28 11:49 | disposition home or self-care (01) ==
LOC: DI 11:48
PROVIDERS: ATTEND Nurse Practitioner Family
DX: M50.823 Other cervical disc disorders at C6-C7 level (principal); R90.89 Other abnormal findings on diagnostic imaging of central nervous system
CPT/HCPCS: 72141

== ENCOUNTER 2017-06-11 12:42 | Outpatient (CLI) | payer OTHER ==
[2017-06-11] MEDS ORDERED: GADOBUTROL 7.5 MMOL/7.5 ML VIAL ONE (13:04)
[2017-06-11] MEDS ORDERED: GADOBUTROL 7.5 MMOL/7.5 ML VIAL IVP ONE (13:54)
--- NOTE | 2017-06-11 14:46 | MRI Report ---
EXAM: MRI BRAIN WITHOUT AND WITH CONTRAST EXAM DATE: 06/11/2017 02:03 PM. CLINICAL HISTORY: 22-year-old with bilateral upper extremity numbness and tingling COMPARISON: MR cervical spine 05/28/2017. TECHNIQUE: Multiplanar, multisequence T1-weighted and fluid-sensitive MR sequences of the brain were performed. Sequences optimized for routine evaluation. Other: None. IV Contrast: 7 cc Gadavist. FINDINGS: Brain Volume: Normal for age. Parenchyma: No acute parenchymal hemorrhage, mass, or midline shift. No definite abnormal areas of T2 /FLAIR signal hyperintensity seen within the supratentorial white matter. There is subtle area of T2/ FLAIR signal hyperintensity seen within the left aspect of julio césar measuring up to 3 mm (series 601, ken ge 8) that when accounting for differences in technique appear unchanged from 05/28/2017. There are pro minent perivascular spaces seen involving the bilateral subinsular regions, greater on the right. The re is restricted diffusion seen to suggest acute infarct. No areas of hemosiderin staining. There is a patchy area of postcontrast enhancement seen within the left aspect of julio césar measuring up to 6 mm (s eries 1002, image 30). No other areas of abnormal postcontrast enhancement seen. Ventricles/Cisterns: No hydrocephalus. No abnormal extra-axial fluid collection or hemorrhage. Orbits: Symmetric and unremarkable. Sella Turcica: The pituitary gland, cavernous sinuses, suprasellar cistern and optic chiasm are unrem arkable. IAC: Symmetric and unremarkable. Vasculature: Normal signal flow void is seen in the major arterial structures at the skull base. The dural sinuses are patent and enhance normally. Sinuses: No acute sinus disease. Bones: No focal pathologic appearing marrow signal changes. Other: None. IMPRESSION: 1. No acute infarct, intracranial hemorrhage, mass, hydrocephalus, or midline shift. 2. Single enhancing T2 hyperintense lesion within the left julio césar that when accounting for differences in technique appears unchanged from 05/28/2017. Finding is nonspecific and potential etiologies include demyelinating plaque, sequela of prior vascular insult, capillary telangiectasia, or other lesion. C orrelation with laboratory values and CSF analysis as well as repeat examination in 3-6 months should be considered. 3. No other abnormal T2 hyperintense lesion or additional areas of abnormal postcontrast enhancement seen. [facility] Referring Provider Line: [phone] SITE ID: [id number]
== END 2017-06-11 12:43 | disposition home or self-care (01) ==
LOC: DI 12:42
PROVIDERS: ATTEND Nurse Practitioner Family
DX: G93.9 Disorder of brain, unspecified (principal)
CPT/HCPCS: 70553; A9585

== ENCOUNTER 2017-11-16 10:26 | Outpatient (CLI) | payer OTHER | END 2017-11-16 10:27 | disposition home or self-care (01) | LOC: SC 10:26 | PROVIDERS: ATTEND Internal Medicine Pulmonary Disease | DX: G47.10 Hypersomnia, unspecified (principal); G47.53 Recurrent isolated sleep paralysis | CPT/HCPCS: 99203; 99212 ==

== ENCOUNTER 2017-11-20 20:15 | Emergency (ER) | payer OTHER ==
[2017-11-20 20:40] LABS: BILIRUBIN,URINE NEGATIVE (NEGATIVE); GLUCOSE, URINE (UA) NEGATIVE (NEGATIVE); KETONES,URINE (UA) 15 mg/dL (NEGATIVE); LEUKOCYTE ESTERASE, URINE NEGATIVE (NEGATIVE); NITRITE,URINE NEGATIVE (NEGATIVE); OCCULT BLOOD,URINE NEGATIVE (NEGATIVE); PROTEIN,URINE NEGATIVE (NEGATIVE); UROBILINOGEN,URINE 0.2 (NORMAL) E.U./dL (NORMAL)
[2017-11-20 20:47] LABS: CLARITY,URINE CLEAR (CLEAR); HCG UR QUAL NEGATIVE
--- NOTE | 2017-11-20 21:05 | ED Physician Documentation ---
PD HPI ABD PAIN - Stated complaint Stated Complaint: BACK PX/ABD PX - Chief complaint Chief Complaint: Abd Pain - History obtained from History obtained from: Patient - History of Present Illness Timing - onset: Today (onset this morning of right mid to lower abd pain and righ flank pain that has increased through the day.) Timing - details: Gradual onset, Still present Quality: Cramping, Aching, Pain Location: RLQ Radiation: Right flank Improved by: No: Laying still Worsened by: Moving, Palpation. No: Breathing Associated symptoms: Nausea. No: Fever, Vomiting, Diarrhea, Constipation, Melena Similar symptoms before: Has not had sx before Recently seen: Not recently seen Review of Systems Constitutional: denies: Fever, Chills, Myalgias Nose: denies: Rhinorrhea / runny nose, Congestion Throat: denies: Sore throat Cardiac: denies: Chest pain / pressure, Palpitations Respiratory: denies: Dyspnea, Cough GI: reports: Abdominal Pain, Nausea. denies: Abdominal Swelling, Vomiting, Constipation, Diarrhea, Bloody / black stool : reports: LMP (1 month ago). 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 : None HEENT: None Psych: None Musculoskeletal: None Derm: None - Past Surgical History Past Surgical History: Yes HEENT: Myringotomy (tubes), Tonsil/Adenoidectomy - Present Medications Home Medications: Ambulatory Orders Medication Instructions Recorded Confirmed Gabapentin 300 mg PO DAILY 09/10/16 05/13/17 Methocarbamol [Robaxin] 500 mg PO Q6HR PRN 05/13/17 05/13/17 Naproxen 375 mg PO BID #20 tablet 11/20/17 Ondansetron Odt [Zofran] 4 mg TL Q6H PRN #15 tablet 11/20/17 - Allergies Allergies/Adverse Reactions: Allergies Allergy/AdvReac Type Severity Reaction Status Date / Time nickel Allergy Rash Verified 11/20/17 20:21 - Social History Does the pt smoke?: Yes Smoking Status: Current every day smoker Does the pt drink ETOH?: Yes Does the pt have substance abuse?: No - Immunizations Immunizations are current?: Yes - POLST Patient has POLST: No PD ED PE NORMAL - Vitals Vital signs reviewed: Yes - General General: Alert and oriented X 3, Well developed/nourished, Other (appears in pain) - HEENT HEENT: Pharynx benign - Neck Neck: Supple, no meningeal sign, No adenopathy - Cardiac Cardiac: RRR, No murmur - Respiratory Respiratory: Clear bilaterally - Abdomen Abdomen: Normal bowel sounds, Soft, Non distended, No organomegaly, Other ( tender RL to right mid abd with local guarding. No percussion tenderness. Right flank with some CVA tenderness. No rebound noted on abd exam. ) - Female Female : Deferred - Back Back: No spinal TTP - Derm Derm: Normal color, Warm and dry - Extremities Extremities: No deformity, No tenderness to palpate, Normal ROM s pain, No edema , No calf tenderness / cord - Neuro Neuro: Alert and oriented X 3, No motor deficit, Normal speech Results - Vitals Vitals: Vital Signs - 24 hr 11/20/17 11/20/17 20:18 21:19 Temperature 36.0 C L Heart Rate 87 63 Respiratory 16 18 Rate Blood Pressure 128/81 H 143/97 H O2 Saturation 100 100 Oxygen O2 Source Room air - Labs Labs: Laboratory Tests 11/20/17 11/20/17 11/20/17 20:29 21:40 21:40 WBC 6.3 RBC 4.26 Hgb 14.2 Hct 39.8 MCV 93.6 MCH 33.4 H MCHC 35.7 RDW 12.3 Plt Count 292 MPV 7.5 L Neut # (Auto) 3.0 Lymph # (Auto) 2.6 [place] # (Auto) 0.5 Eos # (Auto) 0.1 Baso # (Auto) 0.0 Absolute Nucleated RBC 0.01 Nucleated RBC % 0.1 Sodium 136 Potassium 3.2 L Chloride 105 Carbon Dioxide 22 Anion Gap 9.0 BUN 7 Creatinine 0.7 Estimated GFR (MDRD) 103 Glucose 86 Calcium 9.2 Total Bilirubin 0.9 AST 20 ALT 18 Alkaline Phosphatase 49 Total Protein 8.1 Albumin 5.0 Globulin 3.1 Albumin/Globulin Ratio 1.6 Lipase 28 Urine Color YELLOW Urine Clarity CLEAR Urine pH 6.0 Ur Specific [place] 1.010 Urine Protein NEGATIVE Urine Glucose (UA) NEGATIVE Urine Ketones 15 H Urine Occult Blood NEGATIVE Urine Nitrite NEGATIVE Urine Bilirubin NEGATIVE Urine Urobilinogen 0.2 (NORMAL) Ur Leukocyte Esterase NEGATIVE Ur Microscopic Review NOT INDICATED Urine Culture Comments NOT INDICATED Urine HCG, Qual NEGATIVE - Rads (name of study) abd/pelvic CT Radiology: Prelim report reviewed (no kidney stones; intestines normal; ovaries/ pelvic organs grossly normal; gallbladder normal. ) PD MEDICAL DECISION MAKING - ED course Complexity details: reviewed results, considered differential (consider UTI/ kidney stones, appendix, ovarian cysts. It is low tenderness for gallbladder. The exam and history would most likely suggest ureterolithiasis. ), d/w patient - Sepsis Event Vital Signs: Vital Signs - 24 hr 11/20/17 11/20/17 20:18 21:19 Temperature 36.0 C L Heart Rate 87 63 Respiratory 16 18 Rate Blood Pressure 128/81 H 143/97 H O2 Saturation 100 100 Oxygen O2 Source Room air Departure - Departure Disposition: Home, Self Care Clinical Impression: Abdominal pain Qualifiers: Abdominal location: right lower quadrant Qualified Code(s): R10.31 - Right lower quadrant pain Condition: Stable Record reviewed to determine appropriate education?: Yes Instructions: ED Abdominal Pain Unkn Cause Follow-Up: PATRICK LANDEROS MD [Primary Care Provider] - Prescriptions: Naproxen 375 mg PO BID #20 tablet Ondansetron Odt [Zofran] 4 mg TL Q6H PRN #15 tablet PRN Reason: Nausea / Vomiting Comments: The cause of your pain is not clear at this time. There is no signs of kidney stones, gallbladder problems, appendicitis, ovarian cysts, urinary tract infection. I would give it a day or so with some nausea medicine and ibuprofen or Tylenol if needed for pains, hydrocodone for worse pains. Recheck if not improved in the next 1-2 days and return sooner if worsening symptoms. Forms: Activity restrictions
[2017-11-20] MEDS ORDERED: SODIUM CHLORIDE 0.9% 1,000 ML IV ONE (21:30)
[2017-11-20] MEDS ORDERED: MORPHINE 10 MG/ML VIAL IVP STA ×2 (21:30→22:58)
[2017-11-20] MEDS ORDERED: ONDANSETRON 4 MG/2 ML VIAL IVP STA (21:30)
[2017-11-20 21:44] LABS: BASOPHILS % (AUTO) 0.7 %; EOSINOPHILS # (AUTO) 0.1 10^3/uL (0.0-0.7); EOSINOPHILS % (AUTO) 1.7 %; HGB - HEMOGLOBIN 14.2 g/dL (12.0-16.0); LYMPHOCYTES # (AUTO) 2.6 10^3/uL (1.5-3.5); LYMPHOCYTES % (AUTO) 41.8 %; MEAN CORPUSCULAR HEMOGLOBIN 33.4 pg (27.0-31.0); MEAN CORPUSCULAR HGB CONC 35.7 g/dL (32.0-36.0); MEAN CORPUSCULAR VOLUME 93.6 fL (81.0-99.0); MEAN PLATELET VOLUME 7.5 fL (7.9-10.8); MONOCYTES # (AUTO) 0.5 10^3/uL (0.0-1.0); MONOCYTES % (AUTO) 7.6 %; NEUTROPHILS % (AUTO) 48.2 %; PLT - PLATELET COUNT 292 10^3/uL (130-450); RED BLOOD COUNT 4.26 10^6/uL (4.20-5.40); RED CELL DISTRIBUTION WIDTH 12.3 % (12.0-15.0); WHITE BLOOD COUNT 6.3 x10^3/uL (4.8-10.8)
[2017-11-20 21:56] LABS: ALBUMIN/GLOBULIN RATIO 1.6 (1.0-2.2); BILIRUBIN,TOTAL 0.9 mg/dL (0.2-1.0); CALCIUM 9.2 mg/dL (8.5-10.3); CREATININE 0.7 mg/dL (0.4-1.0); TOTAL PROTEIN 8.1 g/dL (6.7-8.2)
--- NOTE | 2017-11-20 22:13 | CT Report ---
Procedure Date: 11/20/2017 Accession Number: [id number] / [id number] Procedure: CT - KUB CPT Code: FULL RESULT: EXAM: CT ABDOMEN AND PELVIS (CT KUB) EXAM DATE: 11/20/2017 10:03 PM. CLINICAL HISTORY: Right abd to flank pain onset this morning. COMPARISONS: ABDOMEN/PELVIS W/ 02/15/2016. TECHNIQUE: Routine axial helical CT imaging was performed through the abdomen and pelvis without IV contrast. Reconstructions: Coronal and sagittal. In accordance with CT protocol optimization, one or more of the following dose reduction techniques were utilized for this exam: automated exposure control, adjustment of mA and/or KV based on patient size, or use of iterative reconstructive technique. FINDINGS: Lung Bases: Unremarkable. Right Kidney/Ureter: No stones, hydronephrosis, or hydroureter. No perinephric fat stranding. Left Kidney/Ureter: No stones, hydronephrosis, or hydroureter. No perinephric fat stranding. Other Solid Organs: Noncontrast images of the solid organs are grossly unremarkable. Gallbladder/Bile Ducts: Unremarkable. Peritoneal Cavity: No free fluid, free air or zulema adenopathy. Bowel is grossly unremarkable. Pelvic Organs: No bladder stones or wall thickening. Noncontrast images of the visualized pelvic organs are unremarkable. Vasculature: Unremarkable. Other: None. IMPRESSION: No urinary tract stones or obstruction. [facility]
[2017-11-20] MEDS ORDERED: HYDROcod/ACET 5/325 Prepack 4 PO STA (22:58)
[2017-11-20] MEDS ORDERED: KETOROLAC 60 MG/2 ML VIAL IVP STA (22:58)
[2017-11-20] MEDS ORDERED: ONDANSETRON ODT 4 MG Prepack 2 TL PRN (22:58)
[2017-11-20 23:25] VITALS: BP 116/76
== END 2017-11-20 23:30 | disposition home or self-care (01) ==
LOC: ED 20:15
DX: R10.31 Right lower quadrant pain (principal)
CPT/HCPCS: 36415; 74176; 80053; 81001; 81003; 81025; 83690; 85025; 87086; 96361; 96374; 96375; 96376; 99283; 99284

== ENCOUNTER 2017-12-15 18:45 | Emergency (ER) | payer OTHER ==
[2017-12-15 20:21] VITALS: BP 120/68
[2017-12-15] MEDS ORDERED: KETOROLAC 60 MG/2 ML VIAL IM STA (20:37)
[2017-12-15] MEDS ORDERED: DEXAMETHASONE 10 MG/ML VIAL PO STA (20:37)
--- NOTE | 2017-12-15 20:38 | ED Physician Documentation ---
PD HPI BACK PAIN - Stated complaint Stated Complaint: BACK PX - Chief complaint Chief Complaint: Back Pain - History obtained from History obtained from: Patient - History of Present Illness Timing - onset: How many days ago (2) Timing - details: Gradual onset, Still present Location: Mid, Lower Quality: Pain, Spasm, Aching Associated symptoms: No: Fever, Weakness, Numbness, Incontinent of urine, Unable to urinate, Hematuria, Incontinent of stool Similar symptoms before: Work up / diagnostics, Treatment Recently seen: Not recently seen - Additional information Additional information: Patient is a 22 year old female presenting to the emergency department for atraumatic back pain. patient states that the pain is in her central back with radiation down both sides. patient states that she has had bulging discs in her cervical and thoracic spine but has never had issues with her lumbar spine until recently. patient reports that she has always had some sensory deprivation on her medial thighs. Patient reports that she has had an indcidental finding of some type of mass in her brain that is being followed. Review of Systems Constitutional: denies: Fever, Chills Eyes: reports: Reviewed and negative Cardiac: denies: Chest pain / pressure, Palpitations Respiratory: denies: Dyspnea, Cough GI: denies: Abdominal Pain, Nausea, Vomiting, Constipation, Diarrhea : denies: Dysuria, Frequency, Unable to Void, Incontinent, Hematuria Skin: denies: Rash, Lesions Musculoskeletal: reports: Back pain Neurologic: denies: Generalized weakness, Focal weakness, Numbness, Difficulty speaking, Headache, LOC Immunocompromised: denies: Immunocompromised PD PAST MEDICAL HISTORY - Past Medical History Past Medical History: Yes Cardiovascular: Murmur Respiratory: None Endocrine/Autoimmune: None GI: None PREBOARDER: Ovarian cysts : None HEENT: None Psych: None Musculoskeletal: None Derm: None - Past Surgical History Past Surgical History: Yes HEENT: Myringotomy (tubes), Tonsil/Adenoidectomy - Present Medications Home Medications: Ambulatory Orders Medication Instructions Recorded Confirmed Gabapentin 300 mg PO DAILY 09/10/16 05/13/17 Methocarbamol [Robaxin] 500 mg PO Q6HR PRN 05/13/17 05/13/17 Naproxen 375 mg PO BID #20 tablet 11/20/17 Ondansetron Odt [Zofran] 4 mg TL Q6H PRN #15 tablet 11/20/17 Dexamethasone [Decadron] 4 mg PO DAILY #5 tablet 12/15/17 - Allergies Allergies/Adverse Reactions: Allergies Allergy/AdvReac Type Severity Reaction Status Date / Time nickel Allergy Rash Verified 12/15/17 19:11 - Social History Does the pt smoke?: Yes Smoking Status: Current every day smoker Does the pt drink ETOH?: Yes Does the pt have substance abuse?: No - Immunizations Immunizations are current?: Yes - POLST Patient has POLST: No PD ED PE NORMAL - Vitals Vital signs reviewed: Yes - General General: Alert and oriented X 3, No acute distress - HEENT HEENT: Atraumatic - Cardiac Cardiac: RRR - Respiratory Respiratory: No respiratory distress, Clear bilaterally - Abdomen Abdomen: Soft, Non tender - Derm Derm: Normal color, Warm and dry - Extremities Extremities: No deformity, No edema - Neuro Neuro: Alert and oriented X 3, No motor deficit, No sensory deficit, Normal speech Eye Opening: Spontaneous PD ED PE EXPANDED - Back Back: Normal ROM, Soft tissue tenderness, Straight leg raise + R, Straight leg raise + L Results - Vitals Vitals: Vital Signs - 24 hr 12/15/17 12/15/17 19:08 20:20 Temperature 35.9 C L 36.7 C Heart Rate 90 77 Respiratory 16 Rate Blood Pressure 124/84 H 120/68 O2 Saturation 100 Oxygen O2 Source Room air PD MEDICAL DECISION MAKING - ED course Complexity details: reviewed old records, reviewed results, re-evaluated patient , considered differential, d/w patient ED course: Patient was seen and examined at bedside. patient was well appearing and in no distress. Patient's straight leg test was positive bilaterally but there was no neurological deficit. Patient did likely have a bulging disc or some impingement but no sign of caudequina. Patient would likely benefit from an MRI but it was not needed emergently. Patient was treated with decadron and toradol and stable for discharge with outpatient follow up. - Sepsis Event Vital Signs: Vital Signs - 24 hr 12/15/17 12/15/17 19:08 20:20 Temperature 35.9 C L 36.7 C Heart Rate 90 77 Respiratory 16 Rate Blood Pressure 124/84 H 120/68 O2 Saturation 100 Oxygen O2 Source Room air Departure - Departure Disposition: 01 Home, Self Care Clinical Impression: Back pain Condition: Good Instructions: ED Neck Back Pain General Follow-Up: Gilberto Castaneda MD [Primary Care Provider] - Tomorrow Prescriptions: Dexamethasone [Decadron] 4 mg PO DAILY #5 tablet Comments: Your symptoms are likely secondary to a bulging disc. the only way to really know is to get an mri. you should continue with your pain medications and muscle relaxers. You should follow up with your doctor for re-evaluation and care. You should return to the emergency department for incontinence, new, worsening or uncontrollable symptoms. Discharge Date/Time: 12/15/17 21:26
== END 2017-12-15 21:26 | disposition home or self-care (01) ==
LOC: ED 18:45
DX: M54.9 Dorsalgia, unspecified (principal); F17.200 Nicotine dependence, unspecified, uncomplicated
CPT/HCPCS: 96372; 99283

== ENCOUNTER 2017-12-16 21:13 | Emergency (ER) | payer OTHER ==
[2017-12-16 21:30] VITALS: BP 132/74
== END 2017-12-16 21:42 | disposition left against medical advice (07) ==
LOC: ED 21:13
DX: Z53.21 Procedure and treatment not carried out due to patient leaving prior to being seen by health care provider (principal)

== ENCOUNTER 2018-01-19 17:48 | Emergency (ER) | payer OTHER ==
--- NOTE | 2018-01-19 18:37 | ED Physician Documentation ---
PD HPI URI - Stated complaint Stated Complaint: COUGH/ALEX/SORE THROAT - Chief complaint Chief Complaint: Resp - History obtained from History obtained from: Patient - History of Present Illness Timing - onset: How many days ago (4) Timing duration: Days (4) Timing details: Abrupt onset, Still present Associated symptoms: Chills, Nasal congestion, Sore throat, Dry cough. No: Fever, Dyspnea, NVD Contributing factors: No: Travel, COPD / asthma Similar symptoms before: Has not had sx before Recently seen: Clinic (seen yesterday and Rx sudafed and some nasal spray. No improvement and is having increased cough.) Review of Systems Constitutional: reports: Fever, Chills, Myalgias Nose: reports: Rhinorrhea / runny nose, Congestion Throat: reports: Sore throat Cardiac: denies: Chest pain / pressure Respiratory: reports: Cough. 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 : None HEENT: None Psych: None Musculoskeletal: None Derm: None - Past Surgical History Past Surgical History: Yes HEENT: Myringotomy (tubes), Tonsil/Adenoidectomy - Present Medications Home Medications: Ambulatory Orders Medication Instructions Recorded Confirmed Baclofen [Lioresal] 12/16/17 Topiramate [Topamax] 12/16/17 12/16/17 Amitriptyline HCl 10 mg PO 01/19/18 Benzonatate [Tessalon] 100 mg PO TID PRN #25 capsule 01/19/18 Dexamethasone [Decadron] 4 mg PO DAILY #5 tablet 01/19/18 Doxycycline Monohydrate 100 mg PO BID #14 tablet 01/19/18 guaiFENesin/CODEINE [Robitussin AC] 10 ml PO Q6H PRN #240 ml 01/19/18 - Allergies Allergies/Adverse Reactions: Allergies Allergy/AdvReac Type Severity Reaction Status Date / Time nickel Allergy Rash Verified 01/19/18 17:54 - Social History Does the pt smoke?: Yes Smoking Status: Current every day smoker Does the pt drink ETOH?: Yes Does the pt have substance abuse?: No - Immunizations Immunizations are current?: Yes - POLST Patient has POLST: No PD ED PE NORMAL - Vitals Vital signs reviewed: Yes - General General: Alert and oriented X 3, No acute distress, Well developed/nourished - HEENT HEENT: Ears normal, Pharynx benign - Neck Neck: Supple, no meningeal sign, No adenopathy - Cardiac Cardiac: RRR, No murmur - Respiratory Respiratory: Clear bilaterally - Abdomen Abdomen: Soft, Non tender - Derm Derm: Normal color, Warm and dry - Neuro Neuro: Alert and oriented X 3, No motor deficit, Normal speech Results - Vitals Vitals: Vital Signs - 24 hr 01/19/18 17:51 Temperature 36.3 C L Heart Rate 67 Respiratory 15 Rate Blood Pressure 126/86 H O2 Saturation 100 Oxygen O2 Source Room air PD MEDICAL DECISION MAKING - ED course Complexity details: considered differential, d/w patient - Sepsis Event Vital Signs: Vital Signs - 24 hr 01/19/18 17:51 Temperature 36.3 C L Heart Rate 67 Respiratory 15 Rate Blood Pressure 126/86 H O2 Saturation 100 Oxygen O2 Source Room air Departure - Departure Disposition: 01 Home, Self Care Clinical Impression: Upper respiratory infection Qualifiers: URI type: unspecified URI Qualified Code(s): J06.9 - Acute upper respiratory infection, unspecified Condition: Stable Record reviewed to determine appropriate education?: Yes Instructions: ED Upper Resp Infec No Abx Tx Follow-Up: Gilberto Castaneda MD [Primary Care Provider] - Prescriptions: Benzonatate [Tessalon] 100 mg PO TID PRN #25 capsule PRN Reason: Cough Dexamethasone [Decadron] 4 mg PO DAILY #5 tablet Doxycycline Monohydrate 100 mg PO BID #14 tablet guaiFENesin/CODEINE [Robitussin AC] 10 ml PO Q6H PRN #240 ml PRN Reason: Cough Comments: This does sound viral with the inflammation heading into the chest and giving the tightness in the chest. I would use Decadron steroid anti-inflammatory daily for the next several days. You can use Tessalon if needed for cough and cough medicine if needed. If you do get more consistent sinus drainage that seems purulent then add the doxycycline. Discharge Date/Time: 01/19/18 19:15
[2018-01-19] MEDS ORDERED: DEXAMETHASONE 10 MG/ML VIAL PO STA (19:03)
[2018-01-19] MEDS ORDERED: BENZONATATE 100 MG CAPSULE PO STA (19:03)
[2018-01-19] MEDS ORDERED: guaiFENesin/CODEINE 5 ML UDC PO STA (19:03)
[2018-01-19 19:17] VITALS: BP 120/77
== END 2018-01-19 19:15 | disposition home or self-care (01) ==
LOC: ED 17:48
DX: J06.9 Acute upper respiratory infection, unspecified (principal); F17.200 Nicotine dependence, unspecified, uncomplicated
CPT/HCPCS: 99283; A9270

== ENCOUNTER 2018-03-03 19:36 | Outpatient (CLI) | payer OTHER | END 2018-03-03 19:37 | disposition home or self-care (01) | LOC: SC 19:36 | PROVIDERS: ATTEND Internal Medicine Pulmonary Disease | DX: G47.10 Hypersomnia, unspecified (principal); R53.83 Other fatigue | CPT/HCPCS: 95810 ==

== ENCOUNTER 2018-03-04 06:28 | Outpatient (CLI) | payer OTHER | END 2018-03-04 06:29 | disposition home or self-care (01) | LOC: SC 06:28 | PROVIDERS: ATTEND Internal Medicine Pulmonary Disease | DX: G47.10 Hypersomnia, unspecified (principal) | CPT/HCPCS: 95805 ==

== ENCOUNTER 2018-03-04 08:00 | Outpatient (CLI) | payer OTHER ==
[2018-03-04 07:07] LABS: MUDS CUTOFF CONCENTRATIONS CUTOFF CONC BELOW:
[2018-03-04 14:08] LABS: AMPHETAMINE SCREEN,URINE NEGATIVE (NEGATIVE); BENZODIAZEPINES SCREEN, URINE NEGATIVE (NEGATIVE); COCAINE SCREEN URINE NEGATIVE (NEGATIVE); METHADONE SCREEN, URINE NEGATIVE (NEGATIVE); METHAMPHETAMINES SCREEN, URINE NEGATIVE (NEGATIVE); OPIATE SCREEN, URINE NEGATIVE (NEGATIVE); OXYCODONE SCREEN, URINE NEGATIVE (NEGATIVE); PROPOXYPHENE SCREEN, URINE NEGATIVE (NEGATIVE); TRICYCLIC ANTIDEPRESSANT,URINE NEGATIVE (NEGATIVE)
== END 2018-03-04 08:01 ==
LOC: LAB.N 08:00
PROVIDERS: ATTEND Internal Medicine Pulmonary Disease
DX: R41.82 Altered mental status, unspecified (principal)
CPT/HCPCS: 80306

== ENCOUNTER 2018-04-06 14:13 | Outpatient (CLI) | payer OTHER | END 2018-04-06 14:14 | disposition home or self-care (01) | LOC: SC 14:13 | PROVIDERS: ATTEND Internal Medicine Pulmonary Disease | DX: G47.11 Idiopathic hypersomnia with long sleep time (principal) | CPT/HCPCS: 99212; 99213 ==

== ENCOUNTER 2018-05-10 10:32 | Outpatient (CLI) | payer OTHER | END 2018-05-10 10:33 | disposition home or self-care (01) | LOC: SC 10:32 | PROVIDERS: ATTEND Internal Medicine Pulmonary Disease | DX: G47.11 Idiopathic hypersomnia with long sleep time (principal) | CPT/HCPCS: 99212; 99213 ==

== ENCOUNTER 2018-06-19 15:51 | Emergency (ER) | payer OTHER ==
--- NOTE | 2018-06-19 16:51 | ED Physician Documentation ---
PD HPI FEMALE - Stated complaint Stated Complaint: LOW BACK PAIN - Chief complaint Chief Complaint: UTI - History obtained from History obtained from: Patient - History of Present Illness Timing - onset: How many weeks ago (few) Timing - duration: Weeks Timing - details: Gradual onset, Waxing and waning Associated symptoms: Back pain (has had right flank pain and dysuria. Seen in clinic today and started on Macrobid for UTI.), Dysuria, Urinary frequency. No: Fever, Vaginal discharge, Genital sore/lesion Contributing factors: No: Exposed to STD Similar symptoms before: Diagnosis (has had back pain intermittently without clear Dx. Has had utis in the past. Denies prior vaginitis. similar pain last fall with CT scan showing no stones nor hydronephrosis and UA clear.) Recently seen: Clinic (today) Review of Systems Constitutional: denies: Fever Nose: denies: Rhinorrhea / runny nose, Congestion Throat: denies: Sore throat Respiratory: denies: Cough GI: reports: Nausea. denies: Vomiting, Diarrhea : reports: Dysuria, Frequency. 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 : None HEENT: None Psych: None Musculoskeletal: None Derm: None - Past Surgical History Past Surgical History: Yes HEENT: Myringotomy (tubes), Tonsil/Adenoidectomy - Present Medications Home Medications: Ambulatory Orders Medication Instructions Recorded Confirmed Baclofen [Lioresal] 12/16/17 Topiramate [Topamax] 12/16/17 12/16/17 Amitriptyline HCl 10 mg PO 01/19/18 Hydrocodone/Acetaminophen [[place] 1 each PO Q6H PRN #20 tablet 06/19/18 5-325 Tablet] Modafinil 100 mg PO BID 06/19/18 06/19/18 Nitrofurantoin Monohyd/M-Cryst 100 mg PO BID 06/19/18 06/19/18 [Nitrofurantoin [place]-Mcr 100 mg] Rizatriptan Benzoate [Maxalt] 10 mg PO PRN 06/19/18 06/19/18 Sulfamethox/Trimeth 800/160 1 each PO BID #14 tablet 06/19/18 [Bactrim Ds 800/160] - Allergies Allergies/Adverse Reactions: Allergies Allergy/AdvReac Type Severity Reaction Status Date / Time nickel Allergy Rash Verified 06/19/18 16:01 - Social History Does the pt smoke?: Yes Smoking Status: Current every day smoker Does the pt drink ETOH?: Yes Does the pt have substance abuse?: No - Immunizations Immunizations are current?: Yes - POLST Patient has POLST: No PD ED PE NORMAL - Vitals Vital signs reviewed: Yes - General General: Alert and oriented X 3, No acute distress, Well developed/nourished - HEENT HEENT: Pharynx benign - Neck Neck: Supple, no meningeal sign, No adenopathy - Cardiac Cardiac: RRR, No murmur - Respiratory Respiratory: Clear bilaterally - Abdomen Abdomen: Normal bowel sounds, Soft, Non tender, Non distended - Back Back: No spinal TTP, Other - Derm Derm: Normal color, Warm and dry, No rash Results - Vitals Vitals: Vital Signs - 24 hr 06/19/18 06/19/18 15:59 18:41 Temperature 36.6 C 36.5 C Heart Rate 96 79 Respiratory 18 16 Rate Blood Pressure 137/72 H 115/66 O2 Saturation 100 100 Oxygen O2 Source Room air - Labs Labs: Laboratory Tests 06/19/18 06/19/18 16:46 16:46 Urine Color YELLOW Urine Clarity CLEAR Urine pH 6.5 Ur Specific [place] 1.025 1.025 Urine Protein NEGATIVE Urine Glucose (UA) NEGATIVE Urine Ketones NEGATIVE Urine Occult Blood NEGATIVE Urine Nitrite NEGATIVE Urine Bilirubin NEGATIVE Urine Urobilinogen 0.2 (NORMAL) Ur Leukocyte Esterase NEGATIVE Ur Microscopic Review NOT INDICATED Urine Culture Comments NOT INDICATED Urine HCG, Qual NEGATIVE - Rads (name of study) kidney U/S Radiology: Prelim report reviewed (normal kidney and visible ureter. ), See rad report PD MEDICAL DECISION MAKING - ED course Complexity details: reviewed results, considered differential, d/w patient Departure - Departure Disposition: 01 Home, Self Care Clinical Impression: Acute right flank pain UTI (urinary tract infection) Qualifiers: Urinary tract infection type: acute cystitis Hematuria presence: without hematuria Qualified Code(s): N30.00 - Acute cystitis without hematuria Condition: Stable Record reviewed to determine appropriate education?: Yes Instructions: ED Flank Pain Uncertain Cause, ED UTI Cystitis Female Follow-Up: Gilberto Castaneda MD [Primary Care Provider] - Prescriptions: Hydrocodone/Acetaminophen [[place]ell 5-325 Tablet] 1 each PO Q6H PRN #20 tablet PRN Reason: Pain Sulfamethox/Trimeth 800/160 [Bactrim Ds 800/160] 1 each PO BID #14 tablet Comments: Your urine test did not look bad here but that may be because it is partly treated. I still would change antibiotics to Bactrim twice daily as it has better tissue penetration assuming your back pain relates to the infection. Your ultrasound appeared normal without any signs of swelling of the kidney so that would preclude a blockage or stone and makes a kidney infection less likely as well. You may be having musculoskeletal back pain. Continue your ibuprofen 2-3 times a day. Add pain medicine if needed short- term. Follow-up with your primary care if not better over the next few days. Discharge Date/Time: 06/19/18 18:42
[2018-06-19 16:57] LABS: BILIRUBIN,URINE NEGATIVE (NEGATIVE); GLUCOSE, URINE (UA) NEGATIVE (NEGATIVE); KETONES,URINE (UA) NEGATIVE (NEGATIVE); LEUKOCYTE ESTERASE, URINE NEGATIVE (NEGATIVE); NITRITE,URINE NEGATIVE (NEGATIVE); OCCULT BLOOD,URINE NEGATIVE (NEGATIVE); PH,URINE 6.5 PH (5.0-7.5); PROTEIN,URINE NEGATIVE (NEGATIVE); UROBILINOGEN,URINE 0.2 (NORMAL) E.U./dL (NORMAL)
[2018-06-19 17:02] LABS: CLARITY,URINE CLEAR (CLEAR); HCG UR QUAL NEGATIVE
[2018-06-19] MEDS ORDERED: HYDROcod/ACETAM 5/325 MG TABLET PO STA (17:11)
[2018-06-19] MEDS ORDERED: SULFAMETH/TRIMETH DS 800/160 MG TABLET PO STA (17:11)
--- NOTE | 2018-06-19 18:20 | Ultrasound Report ---
Reason: right flank pain for couple weeks Procedure Date: 06/19/2018 Accession Number: [id number] / [id number] Procedure: US - Retroperitoneal Limited CPT Code: FULL RESULT: EXAM: RENAL ULTRASOUND EXAM DATE: 06/19/2018 06:00 PM. CLINICAL HISTORY: Right flank pain for couple weeks. COMPARISON: [facility] 11/20/2017 9:56 PM. TECHNIQUE: Real-time scanning was performed with static images obtained. FINDINGS: Right Kidney: 10.9 x 5.9 x 5.5 cm. The resistive index measures . Normal echotexture with no stones, contour-deforming masses, or hydronephrosis. Left Kidney: 11.5 x 4.5 x 5.6 cm. The resistive index measures . Normal echotexture with no stones, contour-deforming masses, or hydronephrosis. Bladder: Bilateral jets seen. The prevoid bladder volume was not measured. The postvoid bladder volume was 55 cc. Other: None. IMPRESSION: 1. Kidneys appear normal in size with no hydronephrosis or visualized stone. RADIA
[2018-06-19 18:42] VITALS: BP 115/66
== END 2018-06-19 18:42 | disposition home or self-care (01) ==
LOC: ED 15:51
DX: N30.00 Acute cystitis without hematuria (principal)
CPT/HCPCS: 76775; 81003; 81025; 99283; A9270; 81001; 87086

== ENCOUNTER 2018-06-25 08:13 | Emergency (ER) | payer OTHER ==
--- NOTE | 2018-06-25 10:25 | ED Physician Documentation ---
History of Present Illness - Stated complaint Stated Complaint: FLU LIKE SYMPTOMS - Chief complaint Chief Complaint: General - History obtained from History obtained from: Patient - Additonal information Additional information: The patient is a 23-year-old female who presents with generalized myalgias that started last night, with associated fever. She reports headache, sore throat, and lower abdominal pain radiating to her lower back. She denies cough, nausea or vomiting. 1 week ago she was diagnosed with urinary tract infection and was started on Macrobid. 6 days ago she was seen in the emergency department here with low back pain, and the antibiotic was switched to Bactrim, which she is still taking. The urinalysis was subsequently negative. Her test was negative, and kidney ultrasound was normal. Coworkers have been sick with similar viral symptoms. Review of Systems Constitutional: reports: Fever, Myalgias, Fatigue Eyes: denies: Irritation Ears: denies: Ear pain Nose: reports: Congestion Throat: reports: Sore throat Cardiac: denies: Chest pain / pressure Respiratory: denies: Dyspnea, Cough GI: reports: Abdominal Pain (lower). denies: Nausea, Vomiting : denies: Dysuria Skin: denies: Lesions Musculoskeletal: reports: Back pain Neurologic: reports: Headache. 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: Ovarian cysts : None HEENT: None Psych: None Musculoskeletal: None Derm: None - Past Surgical History Past Surgical History: Yes HEENT: Myringotomy (tubes), Tonsil/Adenoidectomy - Present Medications Home Medications: Ambulatory Orders Medication Instructions Recorded Confirmed Baclofen [Lioresal] 12/16/17 Topiramate [Topamax] 12/16/17 12/16/17 Amitriptyline HCl 10 mg PO 01/19/18 Hydrocodone/Acetaminophen [[place] 1 each PO Q6H PRN #20 tablet 06/19/18 5-325 Tablet] Modafinil 100 mg PO BID 06/19/18 06/19/18 Nitrofurantoin Monohyd/M-Cryst 100 mg PO BID 06/19/18 06/19/18 [Nitrofurantoin [place]-Mcr 100 mg] Rizatriptan Benzoate [Maxalt] 10 mg PO PRN 06/19/18 06/19/18 Sulfamethox/Trimeth 800/160 1 each PO BID #14 tablet 06/19/18 [Bactrim Ds 800/160] Ibuprofen [Ibu] 800 mg PO TID PRN #30 tablet 06/25/18 - Allergies Allergies/Adverse Reactions: Allergies Allergy/AdvReac Type Severity Reaction Status Date / Time nickel Allergy Rash Verified 06/25/18 08:34 - Social History Does the pt smoke?: Yes Smoking Status: Current every day smoker Does the pt drink ETOH?: Yes Does the pt have substance abuse?: No - Immunizations Immunizations are current?: Yes - POLST Patient has POLST: No PD ED PE NORMAL - Vitals Vital signs reviewed: Yes (normal) - General General: Alert and oriented X 3, Well developed/nourished, Other (Appears miserable.) - HEENT HEENT: Atraumatic, EOMI, Ears normal, Pharynx benign - Neck Neck: Supple, no meningeal sign, No adenopathy - Cardiac Cardiac: RRR, No murmur - Respiratory Respiratory: Clear bilaterally - Abdomen Abdomen: Soft, Non tender - Back Back: No CVA TTP - Derm Derm: No rash - Extremities Extremities: No edema, No calf tenderness / cord - Neuro Neuro: Alert and oriented X 3, No motor deficit, Normal speech Results - Vitals Vitals: Oxygen O2 Source Room air - Labs Labs: Laboratory Tests 06/25/18 08:35 Influenza A (Rapid) Negative Influenza B (Rapid) Negative PD MEDICAL DECISION MAKING - ED course Complexity details: reviewed old records, re-evaluated patient, considered differential, d/w patient, d/w family ED course: The patient's presentation is most consistent with acute viral syndrome. Her presentation does not suggest meningitis or pneumonia. Influenza swab is negative. Urinalysis from 6 days ago is negative, and renal ultrasound at that time was negative. There is no clinical indication to repeat those studies. Treatment in the emergency department included administration of ibuprofen 800 mg orally. She is being discharged with prescription for ibuprofen. 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 Departure - Departure Disposition: 01 Home, Self Care Clinical Impression: Viral syndrome Condition: Stable Instructions: ED Viral Syndrome Follow-Up: Gilberto Castaneda MD [Primary Care Provider] - Prescriptions: Ibuprofen [Ibu] 800 mg PO TID PRN #30 tablet PRN Reason: Pain Comments: Drink plenty of fluids. You can use ibuprofen 3 times daily as needed for fever or achiness. Follow-up with your primary physician within 1-2 weeks. Call to schedule an appointment. Return to the emergency department if you develop increasing headache, increasing abdominal pain, or otherwise worsening symptoms. Forms: Activity restrictions Discharge Date/Time: 06/25/18 10:36
[2018-06-25] MEDS ORDERED: IBUPROFEN 800 MG TABLET PO STA (10:27)
[2018-06-25 10:35] VITALS: BP 125/74
== END 2018-06-25 10:36 | disposition home or self-care (01) ==
LOC: ED 08:13
DX: B34.9 Viral infection, unspecified (principal); F17.200 Nicotine dependence, unspecified, uncomplicated
CPT/HCPCS: 87275; 87276; 99283; A9270

== ENCOUNTER 2018-07-08 19:41 | Emergency (ER) | payer OTHER ==
[2018-07-08 20:08] LABS: BILIRUBIN,URINE NEGATIVE (NEGATIVE); GLUCOSE, URINE (UA) NEGATIVE (NEGATIVE); KETONES,URINE (UA) NEGATIVE (NEGATIVE); LEUKOCYTE ESTERASE, URINE NEGATIVE (NEGATIVE); NITRITE,URINE NEGATIVE (NEGATIVE); OCCULT BLOOD,URINE NEGATIVE (NEGATIVE); PROTEIN,URINE NEGATIVE (NEGATIVE); UROBILINOGEN,URINE 0.2 (NORMAL) E.U./dL (NORMAL)
[2018-07-08 20:22] LABS: CLARITY,URINE CLEAR (CLEAR); HCG UR QUAL NEGATIVE
[2018-07-08 20:35] LABS: BASOPHILS # (AUTO) 0.1 10^3/uL (0.0-0.1); BASOPHILS % (AUTO) 0.9 %; EOSINOPHILS # (AUTO) 0.1 10^3/uL (0.0-0.7); EOSINOPHILS % (AUTO) 1.5 %; HGB - HEMOGLOBIN 12.7 g/dL (12.0-16.0); LYMPHOCYTES % (AUTO) 37.5 %; MEAN CORPUSCULAR HEMOGLOBIN 32.7 pg (27.0-31.0); MEAN CORPUSCULAR VOLUME 96.1 fL (81.0-99.0); MEAN PLATELET VOLUME 7.1 fL (7.9-10.8); MONOCYTES # (AUTO) 0.7 10^3/uL (0.0-1.0); MONOCYTES % (AUTO) 9.2 %; NEUTROPHILS # (AUTO) 4.1 10^3/uL (1.5-6.6); NEUTROPHILS % (AUTO) 50.9 %; PLT - PLATELET COUNT 442 10^3/uL (130-450); RED BLOOD COUNT 3.89 10^6/uL (4.20-5.40); RED CELL DISTRIBUTION WIDTH 11.9 % (12.0-15.0)
[2018-07-08 20:47] LABS: ALBUMIN 4.1 g/dL (3.2-5.5); ALBUMIN/GLOBULIN RATIO 1.3 (1.0-2.2); BILIRUBIN,TOTAL 0.6 mg/dL (0.2-1.0); CALCIUM 8.7 mg/dL (8.5-10.3); CREATININE 0.6 mg/dL (0.4-1.0); TOTAL PROTEIN 7.3 g/dL (6.7-8.2)
--- NOTE | 2018-07-08 21:29 | ED Physician Documentation ---
PD HPI ABD PAIN - Stated complaint Stated Complaint: ABD PX/FEVER/MIGRAINE - Chief complaint Chief Complaint: Abd Pain - History obtained from History obtained from: Patient - History of Present Illness Timing - onset: How many weeks ago (3) Timing - duration: Weeks (3) Timing - details: Gradual onset Pain level max: 7 Pain level now: 5 Quality: Aching, Pain Location: Other (R flank) Radiation: Other (non-radiating) Improved by: Other (nothing) Worsened by: No: Eating, Moving, Breathing, Position, Palpation Associated symptoms: Fever (subjective). No: Nausea, Hematemesis, Diarrhea, Constipation, Melena, Hematochezia, Dysuria, Hematuria, Chest pain Similar symptoms before: Diagnosis ("kidney infections, ovarian cysts") Recently seen: Not recently seen Review of Systems Nose: denies: Rhinorrhea / runny nose, Congestion GI: denies: Nausea, Vomiting, Diarrhea : denies: Dysuria, Frequency, Hesitancy, Now EGA Skin: denies: Rash Musculoskeletal: denies: Neck pain Neurologic: reports: Headache (intermittent) PD PAST MEDICAL HISTORY - Past Medical History Past Medical History: Yes Cardiovascular: Murmur Respiratory: None Endocrine/Autoimmune: None GI: None 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 : None HEENT: None Psych: None Musculoskeletal: None Derm: None - Past Surgical History Past Surgical History: Yes HEENT: Myringotomy (tubes), Tonsil/Adenoidectomy - Present Medications Home Medications: Ambulatory Orders Medication Instructions Recorded Confirmed Baclofen [Lioresal] 10 mg PO DAILY 12/16/17 07/08/18 Topiramate [Topamax] 100 mg PO DAILY 12/16/17 07/08/18 Amitriptyline HCl 10 mg PO DAILY 01/19/18 07/08/18 Modafinil 100 mg PO BID 06/19/18 07/08/18 Rizatriptan Benzoate [Maxalt] 10 mg PO DAILY 06/19/18 07/08/18 Ibuprofen [Ibu] 800 mg PO TID PRN #30 tablet 06/25/18 07/08/18 Ibuprofen [Motrin] 800 mg PO Q8H PRN #30 tablet 07/08/18 - Allergies Allergies/Adverse Reactions: Allergies Allergy/AdvReac Type Severity Reaction Status Date / Time nickel Allergy Rash Verified 07/08/18 19:48 - Social History Does the pt smoke?: Yes Smoking Status: Current every day smoker Does the pt drink ETOH?: Yes Does the pt have substance abuse?: No - Immunizations Immunizations are current?: Yes - POLST Patient has POLST: No PD ED PE NORMAL - Vitals Vital signs reviewed: Yes - General General: Alert and oriented X 3, No acute distress, Well developed/nourished - HEENT HEENT: PERRL, Ears normal, Moist mucous membranes, Pharynx benign - Neck Neck: Supple, no meningeal sign, No bony TTP - Cardiac Cardiac: RRR, No murmur, Strong equal pulses - Respiratory Respiratory: No respiratory distress, Clear bilaterally - Abdomen Abdomen: Normal bowel sounds, Soft, Non tender, Non distended - Back Back: No CVA TTP, No spinal TTP - Derm Derm: Warm and dry - Extremities Extremities: No edema, No calf tenderness / cord - Neuro Neuro: Alert and oriented X 3 - Psych Psych: Normal mood, Normal affect Results - Vitals Vitals: Vital Signs - 24 hr 07/08/18 07/08/18 07/08/18 19:42 20:14 21:41 Temperature 36.7 C 37.1 C 37.1 C Heart Rate 106 H 74 Respiratory 16 14 Rate Blood Pressure 137/70 H 115/77 O2 Saturation 100 99 Oxygen O2 Source Room air - Labs Labs: Laboratory Tests 07/08/18 07/08/18 07/08/18 19:55 20:23 20:23 WBC 8.0 RBC 3.89 L Hgb 12.7 Hct 37.4 MCV 96.1 MCH 32.7 H MCHC 34.0 RDW 11.9 L Plt Count 442 MPV 7.1 L Neut # (Auto) 4.1 Lymph # (Auto) 3.0 Piute # (Auto) 0.7 Eos # (Auto) 0.1 Baso # (Auto) 0.1 Absolute Nucleated RBC 0.00 Nucleated RBC % 0.0 Sodium 135 Potassium 3.1 L Chloride 104 Carbon Dioxide 21 Anion Gap 10.0 BUN 12 Creatinine 0.6 Estimated GFR (MDRD) 122 Glucose 132 H Calcium 8.7 Total Bilirubin 0.6 AST 27 ALT 30 Alkaline Phosphatase 38 L Total Protein 7.3 Albumin 4.1 Globulin 3.2 Albumin/Globulin Ratio 1.3 Lipase 51 Urine Color YELLOW Urine Clarity CLEAR Urine pH 7.0 Ur Specific [place] 1.015 Urine Protein NEGATIVE Urine Glucose (UA) NEGATIVE Urine Ketones NEGATIVE Urine Occult Blood NEGATIVE Urine Nitrite NEGATIVE Urine Bilirubin NEGATIVE Urine Urobilinogen 0.2 (NORMAL) Ur Leukocyte Esterase NEGATIVE Ur Microscopic Review NOT INDICATED Urine Culture Comments NOT INDICATED Urine HCG, Qual NEGATIVE PD MEDICAL DECISION MAKING - ED course Complexity details: reviewed results, re-evaluated patient, considered differential, d/w patient, d/w family ED course: 23-year-old female presents the emergency department with right flank pain of unclear etiology. She has had several viral illnesses recently, possible mesenteric adenitis? Abdomen is soft, nontender nondistended. No evidence of appendicitis. Normal white count. No evidence of peritonitis. No evidence of ureteral stone. No hematuria. She is very well-appearing, nontoxic. Declines pain medication here. Will follow up with her doctor for further care. Patient counseled regarding signs and symptoms for which I believe and urgent re- evaluation would be necessary. Patient with good understanding of and agreement to plan and is comfortable going home at this time This document was made in part using voice recognition software. While efforts are made to proofread this document, sound alike and grammatical errors may occur. Departure - Departure Disposition: 01 Home, Self Care Clinical Impression: Abdominal pain Qualifiers: Abdominal location: unspecified location Qualified Code(s): R10.9 - Unspecified abdominal pain Condition: Good Instructions: ED Abdominal Pain Unkn Cause Follow-Up: Gilberto Castaneda MD [Primary Care Provider] - Within 1 week Prescriptions: Ibuprofen [Motrin] 800 mg PO Q8H PRN #30 tablet PRN Reason: PAIN &/OR FEVER Comments: He can use the Motrin as needed for pain. Return if you worsen. Your laboratory testing is normal tonight. Follow-up with your doctor for further care. Discharge Date/Time: 07/08/18 21:55
[2018-07-08 21:42] VITALS: BP 115/77
== END 2018-07-08 21:55 | disposition home or self-care (01) ==
LOC: ED 19:41
DX: R10.9 Unspecified abdominal pain (principal); F17.200 Nicotine dependence, unspecified, uncomplicated
CPT/HCPCS: 36415; 80053; 81001; 81003; 81025; 83690; 85025; 87086; 99283

== ENCOUNTER 2018-07-09 21:33 | Emergency (ER) | payer OTHER ==
--- NOTE | 2018-07-10 01:07 | ED Physician Documentation ---
PD HPI ABD PAIN - Stated complaint Stated Complaint: ABD PX - Chief complaint Chief Complaint: Abd Pain - History obtained from History obtained from: Patient - History of Present Illness Timing - onset: How many days ago (2) Timing - duration: Days Timing - details: Gradual onset, Constant, Waxing and waning Pain level now: 6 Quality: Pain Location: RLQ Improved by: Laying still, Position Worsened by: Moving, Palpation Associated symptoms: Nausea. No: Fever, Vomiting, Constipation Similar symptoms before: No diagnosis, Work up / diagnostics (T+R from this ED yestersay, blood tests and urinalysis were unremarkable (also had (-) urine hcg). she went to [facility] for f/u but patient says they advised her to come here instead) Recently seen: Emergency Dept Review of Systems Constitutional: reports: Reviewed and negative Cardiac: reports: Reviewed and negative Respiratory: reports: Reviewed and negative GI: reports: Abdominal Pain, Nausea. 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 : None HEENT: None Psych: None Musculoskeletal: None Derm: None - Past Surgical History Past Surgical History: Yes HEENT: Myringotomy (tubes), Tonsil/Adenoidectomy - Present Medications Home Medications: Ambulatory Orders Medication Instructions Recorded Confirmed Baclofen [Lioresal] 10 mg PO DAILY 12/16/17 07/08/18 Topiramate [Topamax] 100 mg PO DAILY 12/16/17 07/08/18 Amitriptyline HCl 10 mg PO DAILY 01/19/18 07/08/18 Modafinil 100 mg PO BID 06/19/18 07/08/18 Rizatriptan Benzoate [Maxalt] 10 mg PO DAILY 06/19/18 07/08/18 Ibuprofen [Ibu] 800 mg PO TID PRN #30 tablet 06/25/18 07/08/18 Ibuprofen [Motrin] 800 mg PO Q8H PRN #30 tablet 07/08/18 Hydrocodone/Acetaminophen 1 - 2 each PO Q6H PRN #10 tablet 07/10/18 [Hydrocodon-Acetaminophen 5-325] - Allergies Allergies/Adverse Reactions: Allergies Allergy/AdvReac Type Severity Reaction Status Date / Time nickel Allergy Rash Verified 07/09/18 22:07 - Social History Does the pt smoke?: Yes Smoking Status: Current every day smoker Does the pt drink ETOH?: Yes Does the pt have substance abuse?: No - Immunizations Immunizations are current?: Yes - POLST Patient has POLST: No PD ED PE NORMAL - Vitals Vital signs reviewed: Yes - General General: Alert and oriented X 3, No acute distress, Well developed/nourished - Cardiac Cardiac: RRR, No murmur - Respiratory Respiratory: No respiratory distress, Clear bilaterally - Abdomen Abdomen: Normal bowel sounds, Soft, Non distended, Other (mild/moderate RLQ tenderness without guarding or rebound. (+) rovsings sign) - Back Back: No CVA TTP Results - Vitals Vitals: Oxygen O2 Source Room air - Rads (name of study) CT A/P Radiology: Prelim report reviewed, See rad report PD MEDICAL DECISION MAKING - ED course Complexity details: reviewed results, re-evaluated patient, considered differential, d/w patient Departure - Departure Disposition: 01 Home, Self Care Clinical Impression: Abdominal pain Condition: Good Instructions: ED Abdominal Pain Unkn Cause Follow-Up: Gilberto Castaneda MD [Primary Care Provider] - Within 3 Days Prescriptions: Hydrocodone/Acetaminophen [Hydrocodon-Acetaminophen 5-325] 1 - 2 each PO Q6H PRN #10 tablet PRN Reason: pain Discharge Date/Time: 07/10/18 04:37
[2018-07-10] MEDS ORDERED: KETOROLAC 30 MG/ML VIAL IVP STA (01:17)
[2018-07-10] MEDS ORDERED: ONDANSETRON 4 MG/2 ML VIAL IVP STA (01:17)
[2018-07-10] MEDS ORDERED: IOPAMIDOL-300 100 ML VIAL ONE (01:43)
[2018-07-10] MEDS ORDERED: IOPAMIDOL-300 100 ML VIAL IVP ONE (02:02)
--- NOTE | 2018-07-10 02:25 | CT Report ---
Reason: abd. pain Procedure Date: 07/10/2018 Accession Number: [id number] / [id number] Procedure: CT - Abdomen/Pelvis W CPT Code: FULL RESULT: EXAM: CT ABDOMEN AND PELVIS EXAM DATE: 07/10/2018 02:04 AM. CLINICAL HISTORY: Abdominal pain. COMPARISONS: KUB 11/20/2017 9:56 PM. TECHNIQUE: Routine helical CT imaging was performed through the abdomen and pelvis. IV contrast: Yes . Enteric contrast: No . Reconstructions: Coronal and sagittal. In accordance with CT protocol optimization, one or more of the following dose reduction techniques were utilized for this exam: automated exposure control, adjustment of mA and/or KV based on patient size, or use of iterative reconstructive technique. FINDINGS: Lung Bases: Unremarkable. Liver: Unremarkable. No suspicious masses. Gallbladder/Bile Ducts: Unremarkable. Spleen: Unremarkable. Pancreas: Unremarkable. Adrenal Glands: Unremarkable. Kidneys: Unremarkable. No suspicious masses or hydronephrosis. Peritoneal Cavity/Bowel: No bowel obstruction or inflammatory process seen. No free air or significant free fluid. No masses or adenopathy. The appendix is normal. No excessive stool burden. Pelvic Organs: Bladder, uterus, and adnexa appear unremarkable with note of a small right ovarian corpus luteum. Vasculature: No aneurysms or other significant abnormality. Bones: No significant abnormality. Other: None. IMPRESSION: Normal abdomen and pelvis CT. RADIA
[2018-07-10] MEDS ORDERED: HYDROcod/ACETAM 5/325 MG TABLET PO STA (04:22)
[2018-07-10 04:36] VITALS: BP 118/80
== END 2018-07-10 04:37 | disposition home or self-care (01) ==
LOC: ED 21:33
DX: R10.31 Right lower quadrant pain (principal); F17.200 Nicotine dependence, unspecified, uncomplicated
CPT/HCPCS: 74177; 96374; 99283; A9270; Q9967

== ENCOUNTER 2018-08-09 09:00 | Outpatient (CLI) | payer OTHER | END 2018-08-09 09:01 | disposition home or self-care (01) | LOC: SC 09:00 | PROVIDERS: ATTEND Internal Medicine Pulmonary Disease | DX: G47.11 Idiopathic hypersomnia with long sleep time (principal) | CPT/HCPCS: 99212; 99213 ==

== ENCOUNTER 2018-09-05 17:40 | Emergency (ER) | payer OTHER ==
[2018-09-05 17:48] VITALS: BP 130/59
[2018-09-05] MEDS ORDERED: CHERRY SYRUP 10 ML UDC PO ONE ×2 (18:02→18:07)
[2018-09-05] MEDS ORDERED: DEXAMETHASONE 10 MG/ML VIAL PO STA ×2 (18:02→18:07)
--- NOTE | 2018-09-05 18:05 | ED Physician Documentation ---
PD HPI URI - Stated complaint Stated Complaint: COUGH/CHEST CONGESTION - Chief complaint Chief Complaint: Resp - History obtained from History obtained from: Patient, Family - History of Present Illness Timing - onset: How many days ago (10-14) Timing duration: Days (10) Timing details: Gradual onset, Still present Associated symptoms: Nasal congestion, Rhinorrhea, Sinus pain, Sore throat, Productive cough Contributing factors: Sick contact Improves by: Rest, Medication Worsened by: Activity Similar symptoms before: Diagnosis (sinusitis and otitis) Recently seen: Clinic - Additional information Additional information: 23-year-old active [employer] [place] female has developed a cough and congestion over the past 10 to 14 days and she has been into see her medical provider and has been using symptomatic relief with some improvement while she takes her medications. She has had a progression of the underlying illness. She has cough productive of yellow and green phlegm sinus pressure and drainage as well as some morning shortness of breath. 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 : None HEENT: None Psych: None Musculoskeletal: None Derm: None - Past Surgical History Past Surgical History: Yes HEENT: Myringotomy (tubes), Tonsil/Adenoidectomy - Present Medications Home Medications: Ambulatory Orders Medication Instructions Recorded Confirmed Baclofen [Lioresal] 10 mg PO DAILY 12/16/17 07/08/18 Topiramate [Topamax] 100 mg PO DAILY 12/16/17 07/08/18 Amitriptyline HCl 10 mg PO DAILY 01/19/18 07/08/18 Modafinil 100 mg PO BID 06/19/18 07/08/18 Rizatriptan Benzoate [Maxalt] 10 mg PO DAILY 06/19/18 07/08/18 Ibuprofen [Ibu] 800 mg PO TID PRN #30 tablet 06/25/18 07/08/18 Ibuprofen [Motrin] 800 mg PO Q8H PRN #30 tablet 07/08/18 Albuterol Sulf [Ventolin Hfa 1 - 2 puffs INH Q4HR PRN #1 inhaler 09/05/18 Inhaler] Amox/Clav 875/125 [Augmentin] 1 each PO Q12H #20 tablet 09/05/18 Benzonatate [Tessalon Perle] 100 - 200 mg PO TID PRN #30 capsule 09/05/18 Benzonatate [Tessalon] 100 mg PO TID 09/05/18 09/05/18 Codeine Phosphate/Guaifenesin 5 ml PO 09/05/18 [Guaifen-Codeine 100-10 mg/5 ml] Pseudoephedrine [Sudafed] 30 mg PO Q6H 09/05/18 09/05/18 - Allergies Allergies/Adverse Reactions: Allergies Allergy/AdvReac Type Severity Reaction Status Date / Time nickel Allergy Rash Verified 09/05/18 17:48 - Social History Does the pt smoke?: Yes Smoking Status: Current every day smoker Does the pt drink ETOH?: Yes Does the pt have substance abuse?: No - Immunizations Immunizations are current?: Yes - POLST Patient has POLST: No PD ED PE NORMAL - Vitals Vital signs reviewed: Yes (normal ) - General General: Alert and oriented X 3, No acute distress, Well developed/nourished - HEENT HEENT: Atraumatic, PERRL, EOMI, Moist mucous membranes, Other (There is tympanosclerosis bilaterally with minimal inflamation on the left and none on the right. There is inflamation to the base of the tonsillar pillars bilaterally. 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, No motor deficit, No sensory deficit, Normal speech Eye Opening: Spontaneous Motor: Obeys Commands Verbal: Oriented GCS Score: 15 - Psych Psych: Normal mood, Normal affect PD ED PE EXPANDED - HEENT HEENT: Right maxillary sinus TTP, Left maxillary sinus TTP Results - Vitals Vitals: Vital Signs - 24 hr 09/05/18 17:46 Temperature 36.9 C Heart Rate 96 Respiratory 18 Rate Blood Pressure 130/59 L O2 Saturation 100 Oxygen O2 Source Room air PD MEDICAL DECISION MAKING - ED course Complexity details: considered differential, d/w patient, d/w family ED course: 23-year-old female with cough and congestion sinus point tenderness drainage of yellow and green phlegm has maxillary sinusitis on examination and she is administered Dexamethasone 10 mg orally here and we will place her on some Augmentin. Departure - Departure Disposition: Home, Self Care Clinical Impression: Sinusitis Qualifiers: Sinusitis location: maxillary Chronicity: acute Recurrence: non-recurrent Qualified Code(s): J01.00 - Acute maxillary sinusitis, unspecified Condition: Stable Instructions: ED Sinusitis Abx Tx, ED Bronchitis Asthmatic Follow-Up: Gilberto Castaneda MD [Primary Care Provider] - Prescriptions: Albuterol Sulf [Ventolin Hfa Inhaler] 1 - 2 puffs INH Q4HR PRN #1 inhaler PRN Reason: Shortness Of Air/Wheezing Amox/Clav 875/125 [Augmentin] 1 each PO Q12H #20 tablet Benzonatate [Tessalon Perle] 100 - 200 mg PO TID PRN #30 capsule PRN Reason: Cough
== END 2018-09-05 18:20 | disposition home or self-care (01) ==
LOC: ED 17:40
DX: J01.00 Acute maxillary sinusitis, unspecified (principal); F17.200 Nicotine dependence, unspecified, uncomplicated
CPT/HCPCS: 99283; A9270

== ENCOUNTER 2018-10-25 17:02 | Emergency (ER) | payer OTHER ==
--- NOTE | 2018-10-25 18:00 | XRAY Report ---
Reason: pain with ROM Procedure Date: 10/25/2018 Accession Number: [id number] / [id number] Procedure: XR - Shoulder 3 View RT CPT Code: FULL RESULT: EXAM: RIGHT SHOULDER RADIOGRAPHY EXAM DATE: 10/25/2018 05:53 PM. CLINICAL HISTORY: Pain with ROM. COMPARISON: None. TECHNIQUE: 3 views. FINDINGS: Bones: Normal. No fracture or bone lesion. Joints: The glenohumeral and acromioclavicular joints are normal. Soft tissues: The visualized hemithorax is unremarkable. No soft tissue swelling. IMPRESSION: No acute displaced fracture or malalignment. RADIA
--- NOTE | 2018-10-25 19:13 | ED Physician Documentation ---
PD HPI UPPER EXT INJURY - Stated complaint Stated Complaint: RT SHLDR PX - Chief complaint Chief Complaint: Ext Problem - History obtained from History obtained from: Patient - History of Present Illness Location: Right, Shoulder Type of injury: Other (was moving furniture for the day several days ago, and has had pain in shoulder with movement since.). No: Fall, Twist, Blunt / blow Timing - onset: How many days ago (3) Timing - duration: Days (3) Timing - details: Gradual onset (did not hurt during the furniture moving, but started couple of hours later and has persisted.) Improved by: Rest Worsened by: Moving. 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 HEENT: None Psych: None Musculoskeletal: None Derm: None - Past Surgical History Past Surgical History: Yes HEENT: Myringotomy (tubes), Tonsil/Adenoidectomy - Present Medications Home Medications: Ambulatory Orders Medication Instructions Recorded Confirmed Baclofen [Lioresal] 10 mg PO DAILY 12/16/17 07/08/18 Topiramate [Topamax] 100 mg PO DAILY 12/16/17 07/08/18 Amitriptyline HCl 10 mg PO DAILY 01/19/18 07/08/18 Modafinil 100 mg PO BID 06/19/18 07/08/18 Rizatriptan Benzoate [Maxalt] 10 mg PO DAILY 06/19/18 07/08/18 Ibuprofen [Ibu] 800 mg PO TID PRN #30 tablet 06/25/18 07/08/18 Ibuprofen [Motrin] 800 mg PO Q8H PRN #30 tablet 07/08/18 Albuterol Sulf [Ventolin Hfa 1 - 2 puffs INH Q4HR PRN #1 inhaler 09/05/18 Inhaler] Amox/Clav 875/125 [Augmentin] 1 each PO Q12H #20 tablet 09/05/18 Benzonatate [Tessalon Perle] 100 - 200 mg PO TID PRN #30 capsule 09/05/18 Benzonatate [Tessalon] 100 mg PO TID 09/05/18 09/05/18 Codeine Phosphate/Guaifenesin 5 ml PO 09/05/18 [Guaifen-Codeine 100-10 mg/5 ml] Pseudoephedrine [Sudafed] 30 mg PO Q6H 09/05/18 09/05/18 Naproxen 500 mg PO BID #20 tablet 10/25/18 Tramadol HCl 50 mg PO Q6H PRN #15 tablet 10/25/18 dexAMETHasone [Decadron] 4 mg PO DAILY #5 tablet 10/25/18 - Allergies Allergies/Adverse Reactions: Allergies Allergy/AdvReac Type Severity Reaction Status Date / Time nickel Allergy Rash Verified 10/25/18 17:16 - Social History Does the pt smoke?: Yes Smoking Status: Current every day smoker Does the pt drink ETOH?: Yes Does the pt have substance abuse?: No - Immunizations Immunizations are current?: Yes - POLST Patient has POLST: No PD ED PE NORMAL - Vitals Vital signs reviewed: Yes - General General: Alert and oriented X 3, No acute distress, Well developed/nourished - Neck Neck: Supple, no meningeal sign, No bony TTP - Derm Derm: Normal color, Warm and dry, No rash - Extremities Extremities: Other (right shoulder tender anteriorly. Not really tender at AC itself. Pain with ROM of the shoulder, most with abduction, extension and external rotation against resistance. No effusion nor redness of the shoulder. ) Results - Vitals Vitals: Vital Signs - 24 hr 10/25/18 10/25/18 17:14 19:40 Temperature 36.6 C Heart Rate 76 71 Respiratory 18 16 Rate Blood Pressure 112/72 104/62 O2 Saturation 99 98 Oxygen O2 Source Room air - Rads (name of study) right shoulder Radiology: Prelim report reviewed, EMP read contemporaneously (no bony abdnormality), See rad report PD MEDICAL DECISION MAKING - ED course Complexity details: considered differential (seems rotator cuff in character. No abrupt injury per se, so presume overuse tendonitis from moving furniture. ), d/w patient Departure - Departure Disposition: 01 Home, Self Care Clinical Impression: Rotator cuff tendonitis Qualifiers: Laterality: right Qualified Code(s): M75.81 - Other shoulder lesions, right shoulder Condition: Stable Record reviewed to determine appropriate education?: Yes Instructions: ED Sprain Shoulder Follow-Up: Gilberto Castaneda MD [Primary Care Provider] - Prescriptions: dexAMETHasone [Decadron] 4 mg PO DAILY #5 tablet Naproxen 500 mg PO BID #20 tablet Tramadol HCl 50 mg PO Q6H PRN #15 tablet PRN Reason: Pain Comments: Use the sling for the shoulder much of the time. He can have it off when resting. Gentle range of motion of the shoulder several times a day to prevent stiffening of the shoulder. No overhead reaching, push pole, lifting for 4 to 5 days. Use anti-inflammatories such as naproxen twice daily for the next 7 to 10 days. Add Tylenol or tramadol if needed for pains. Decadron also anti-inflammatory daily for 5 more days. Recheck if not improving well over the next several days or so if you are improving well, then start progressing range of motion and activity with the shoulder after the 4 to 5-day. Of gentle use. Follow-up with your primary care. Forms: Activity restrictions Discharge Date/Time: 10/25/18 19:50
[2018-10-25] MEDS ORDERED: ACETAMINOPHEN 325 MG TABLET PO STA (19:25)
[2018-10-25] MEDS ORDERED: CHERRY SYRUP 10 ML UDC PO ONE (19:25)
[2018-10-25] MEDS ORDERED: DEXAMETHASONE 10 MG/ML VIAL PO STA (19:25)
[2018-10-25] MEDS ORDERED: traMADol 50 MG TABLET PO STA (19:25)
[2018-10-25 19:41] VITALS: BP 104/62
== END 2018-10-25 19:50 | disposition home or self-care (01) ==
LOC: ED 17:02
DX: M75.81 Other shoulder lesions, right shoulder (principal); F17.200 Nicotine dependence, unspecified, uncomplicated
CPT/HCPCS: 73030; 99283; A9270

== ENCOUNTER 2018-12-10 22:04 | Emergency (ER) | payer OTHER ==
--- NOTE | 2018-12-10 22:46 | ED Physician Documentation ---
PD HPI HEADACHE - Stated complaint Stated Complaint: HEADACHE - Chief complaint Chief Complaint: Heent - History obtained from History obtained from: Patient - History of Present Illness Timing - onset: How many weeks ago (1) Timing - duration: Weeks (1) Timing - details: Gradual onset Pain level now: 6 Worst headache ever?: No: Worst headache ever? Location: Global Quality: Throbbing Associated symptoms: No: Fever, Stiff neck, Nausea, Vomiting, Weakness, Numbness, Syncope, Seizure, Eye pain, Vision changes Improved by: Dark room Worsened by: Light Recently seen: Not recently seen Review of Systems Constitutional: reports: Reviewed and negative Eyes: reports: Photophobia. denies: Loss of vision, Decreased vision Cardiac: reports: Reviewed and negative Respiratory: reports: Reviewed and negative GI: reports: Reviewed and negative Musculoskeletal: denies: Neck pain Neurologic: reports: Headache. 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: Ovarian cysts : None HEENT: None Psych: None Musculoskeletal: None Derm: None - Past Surgical History Past Surgical History: Yes HEENT: Myringotomy (tubes), Tonsil/Adenoidectomy - Present Medications Home Medications: Ambulatory Orders Medication Instructions Recorded Confirmed Baclofen [Lioresal] 10 mg PO DAILY 12/16/17 07/08/18 Topiramate [Topamax] 100 mg PO DAILY 12/16/17 07/08/18 Amitriptyline HCl 10 mg PO DAILY 01/19/18 07/08/18 Modafinil 100 mg PO BID 06/19/18 07/08/18 Rizatriptan Benzoate [Maxalt] 10 mg PO DAILY 06/19/18 07/08/18 Ibuprofen [Ibu] 800 mg PO TID PRN #30 tablet 06/25/18 07/08/18 Ibuprofen [Motrin] 800 mg PO Q8H PRN #30 tablet 07/08/18 Albuterol Sulf [Ventolin Hfa 1 - 2 puffs INH Q4HR PRN #1 inhaler 09/05/18 Inhaler] Amox/Clav 875/125 [Augmentin] 1 each PO Q12H #20 tablet 09/05/18 Benzonatate [Tessalon Perle] 100 - 200 mg PO TID PRN #30 capsule 09/05/18 Benzonatate [Tessalon] 100 mg PO TID 09/05/18 09/05/18 Codeine Phosphate/Guaifenesin 5 ml PO 09/05/18 [Guaifen-Codeine 100-10 mg/5 ml] Pseudoephedrine [Sudafed] 30 mg PO Q6H 09/05/18 09/05/18 Naproxen 500 mg PO BID #20 tablet 10/25/18 Tramadol HCl 50 mg PO Q6H PRN #15 tablet 10/25/18 dexAMETHasone [Decadron] 4 mg PO DAILY #5 tablet 10/25/18 Oxycodone HCl/Acetaminophen 1 - 2 each PO Q6H PRN #14 tablet 12/11/18 [Percocet 5-325 mg Tablet] - Allergies Allergies/Adverse Reactions: Allergies Allergy/AdvReac Type Severity Reaction Status Date / Time nickel Allergy Rash Verified 10/25/18 17:16 - Social History Does the pt smoke?: Yes Smoking Status: Current every day smoker Does the pt drink ETOH?: Yes Does the pt have substance abuse?: No - Immunizations Immunizations are current?: Yes - POLST Patient has POLST: No PD ED PE NORMAL - Vitals Vital signs reviewed: Yes - General General: Alert and oriented X 3, No acute distress, Well developed/nourished - HEENT HEENT: PERRL, EOMI, Moist mucous membranes - Neck Neck: Supple, no meningeal sign - Cardiac Cardiac: RRR, No murmur - Respiratory Respiratory: No respiratory distress, Clear bilaterally - Abdomen Abdomen: Soft, Non tender - Neuro Neuro: Alert and oriented X 3, 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, No motor deficit, No sensory deficit, Normal speech Eye Opening: Spontaneous Motor: Obeys Commands Verbal: Oriented GCS Score: 15 Results - Vitals Vitals: Vital Signs - 24 hr 12/11/18 00:39 Heart Rate 62 Respiratory 16 Rate Blood Pressure 105/69 O2 Saturation 100 Oxygen O2 Source Room air PD MEDICAL DECISION MAKING - ED course Complexity details: reviewed results, re-evaluated patient, considered differential, d/w patient Departure - Departure Disposition: 01 Home, Self Care Clinical Impression: Migraine Condition: Good Instructions: ED Headache Migraine, NARCOTIC, Oral Follow-Up: Gilberto Castaneda MD [Primary Care Provider] - Prescriptions: Oxycodone HCl/Acetaminophen [Percocet 5-325 mg Tablet] 1 - 2 each PO Q6H PRN #14 tablet PRN Reason: pain Discharge Date/Time: 12/11/18 00:55
[2018-12-10] MEDS ORDERED: PROMETHAZINE 25 MG/1 ML VIAL IM STA (23:06)
[2018-12-10] MEDS ORDERED: HYDROmorphone 1 MG/ML CARPUJECT IM STA (23:06)
[2018-12-11] MEDS ORDERED: HYDROmorphone 1 MG/ML CARPUJECT IM STA (00:21)
[2018-12-11] MEDS ORDERED: oxyCODONE/ACET 5/325 Prepack 4 PO STA (00:21)
[2018-12-11 00:41] VITALS: BP 105/69
== END 2018-12-11 00:55 | disposition home or self-care (01) ==
LOC: ED 22:04
DX: G43.909 Migraine, unspecified, not intractable, without status migrainosus (principal); F17.200 Nicotine dependence, unspecified, uncomplicated
CPT/HCPCS: 96372; 99283; 99284; J1170

== ENCOUNTER 2019-01-08 16:06 | Emergency (ER) | payer OTHER ==
--- NOTE | 2019-01-08 16:28 | ED Physician Documentation ---
PD HPI HEADACHE - Stated complaint Stated Complaint: MIGRAINE - History obtained from History obtained from: Patient - History of Present Illness Timing - onset: How many days ago (7) Timing - duration: Days (7) Timing - details: Still present Pain level now: 8 Worst headache ever?: Worst headache ever? (No) Location: Global Associated symptoms: Nausea. No: Fever, Stiff neck, Vomiting, Weakness, Numbness, Syncope, Seizure, Vision changes Improved by: Nothing Similar symptoms before: Diagnosis Recently seen: Emergency Dept - Additional information Additional information: This is a 23-year-old woman who presents with a friend complaints that she is on day 6 of a migraine with nausea but no vomiting. Some both sides of her head but more on the right side than the left and feels like it is behind her eye. She has been working with a neurologist and has had MRIs in the past. For the past year they have been tracking a "brain lesion". She is due for an MRI on January 17 to follow this up in [place]. She is rating her current headache at an 8 out of 10 and she is taken Maxalt, promethazine, naproxen and her daily Topamax today. She had seen her neurologist 4 days ago and then ended up in the emergency department in [place] 3 days ago where they gave her 2 bags of IV fluids along with Decadron, Benadryl, Toradol and Reglan IV and finally Dilaudid. She said by the time she left the hospital she still did not have relief of her headache so she called the neurologist 2 days ago and they told her to go back to the emergency department if she was still having significant headache. She has been weaning down some of her medications. She is been putting ice packs on her head. 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 Review of Systems Constitutional: denies: Fever Eyes: denies: Loss of vision Nose: denies: Rhinorrhea / runny nose Throat: denies: Sore throat Respiratory: denies: Cough GI: reports: Nausea. denies: Vomiting : reports: LMP (4 days ago). denies: Dysuria, Now EGA Skin: denies: Rash Neurologic: reports: Headache. 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: Ovarian cysts : None HEENT: None Psych: None Musculoskeletal: None Derm: None - Past Surgical History Past Surgical History: Yes HEENT: Myringotomy (tubes), Tonsil/Adenoidectomy - Present Medications Home Medications: Ambulatory Orders Medication Instructions Recorded Confirmed Baclofen [Lioresal] 10 mg PO DAILY 12/16/17 07/08/18 Topiramate [Topamax] 100 mg PO DAILY 12/16/17 07/08/18 Amitriptyline HCl 10 mg PO DAILY 01/19/18 07/08/18 Modafinil 100 mg PO BID 06/19/18 07/08/18 Rizatriptan Benzoate [Maxalt] 10 mg PO DAILY 06/19/18 07/08/18 Ibuprofen [Ibu] 800 mg PO TID PRN #30 tablet 06/25/18 07/08/18 Ibuprofen [Motrin] 800 mg PO Q8H PRN #30 tablet 07/08/18 Albuterol Sulf [Ventolin Hfa 1 - 2 puffs INH Q4HR PRN #1 inhaler 09/05/18 Inhaler] Amox/Clav 875/125 [Augmentin] 1 each PO Q12H #20 tablet 09/05/18 Benzonatate [Tessalon Perle] 100 - 200 mg PO TID PRN #30 capsule 09/05/18 Benzonatate [Tessalon] 100 mg PO TID 09/05/18 09/05/18 Codeine Phosphate/Guaifenesin 5 ml PO 09/05/18 [Guaifen-Codeine 100-10 mg/5 ml] Pseudoephedrine [Sudafed] 30 mg PO Q6H 09/05/18 09/05/18 Naproxen 500 mg PO BID #20 tablet 10/25/18 Tramadol HCl 50 mg PO Q6H PRN #15 tablet 10/25/18 dexAMETHasone [Decadron] 4 mg PO DAILY #5 tablet 10/25/18 Oxycodone HCl/Acetaminophen 1 - 2 each PO Q6H PRN #14 tablet 12/11/18 [Percocet 5-325 mg Tablet] - Allergies Allergies/Adverse Reactions: Allergies Allergy/AdvReac Type Severity Reaction Status Date / Time nickel Allergy Rash Verified 01/08/19 16:18 - Social History Does the pt smoke?: Yes Smoking Status: Current every day smoker Does the pt drink ETOH?: Yes Does the pt have substance abuse?: No - Immunizations Immunizations are current?: Yes - POLST Patient has POLST: No PD ED PE NORMAL - Vitals Vital signs reviewed: Yes - General General: Alert and oriented X 3, No acute distress, Well developed/nourished - HEENT HEENT: Atraumatic, PERRL, EOMI, Moist mucous membranes, Pharynx benign - Neck Neck: Supple, no meningeal sign, No adenopathy - Cardiac Cardiac: RRR, No murmur - Respiratory Respiratory: No respiratory distress - Abdomen Abdomen: Normal bowel sounds, Soft - Derm Derm: Normal color, No rash - Extremities Extremities: No deformity, No edema - Neuro Neuro: Alert and oriented X 3, 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 She has no ataxia. Negative Romberg.) - Psych Psych: Normal mood, Normal affect Results - Vitals Vitals: Vital Signs - 24 hr 01/08/19 01/08/19 01/08/19 16:14 18:02 18:38 Temperature 36.2 C L Heart Rate 89 60 62 Respiratory 18 18 18 Rate Blood Pressure 129/70 106/73 116/77 O2 Saturation 100 98 98 01/08/19 01/08/19 01/08/19 19:18 19:39 21:12 Temperature Heart Rate 56 L 60 64 Respiratory 22 17 17 Rate Blood Pressure 112/66 113/74 121/81 H O2 Saturation 98 100 99 Oxygen O2 Source Room air PD MEDICAL DECISION MAKING - ED course Complexity details: re-evaluated patient ED course: 1744: Patient reports headache is no better after IVFs, Benadryl and Compazine. Will give Haldol IV. 2124: Haldol dose was repeated and pain down only to 6.5/10. We do not have injectable muscle relaxers. She is never had relief with Robaxin or Flexeril in the past. We will give 5 mg of Valium p.o. and she is to contact her neurologist next week for further management of her chronic headaches. Departure - Departure Disposition: 01 Home, Self Care Clinical Impression: Headache Qualifiers: Headache type: unspecified Headache chronicity pattern: episodic headache Intractability: intractable Qualified Code(s): R51 - Headache Condition: Good Instructions: ED Headache Migraine Follow-Up: Gilberto Castaneda MD [Primary Care Provider] - Neurologist,Your [Other] Comments: Home tonight and rest. Continue to take your chronic headache medications. Follow-up with the neurologist next week about further recommendations for controlling the headache.
[2019-01-08] MEDS ORDERED: SODIUM CHLORIDE 0.9% 1,000 ML IV ONE (16:33)
[2019-01-08] MEDS ORDERED: PROCHLORPERAZINE 10 MG/2 ML VIAL IVP STA (16:38)
[2019-01-08] MEDS ORDERED: diphenhydrAMINE INJ 50 MG/ML VIAL IVP STA ×2 (16:39→19:17)
[2019-01-08] MEDS ORDERED: HALOPERIDOL 5 MG/ML VIAL IVP ONE ×2 (17:43→19:16)
[2019-01-08 21:12] VITALS: BP 121/81
[2019-01-08] MEDS ORDERED: diazePAM 5 MG TABLET PO STA (21:24)
== END 2019-01-08 21:36 | disposition home or self-care (01) ==
LOC: ED 16:06
DX: R51 Headache (principal); F17.200 Nicotine dependence, unspecified, uncomplicated
CPT/HCPCS: 96361; 96374; 96375; 96376; 99284; A9270; J1200

== ENCOUNTER 2019-01-09 20:11 | Emergency (ER) | payer OTHER ==
--- NOTE | 2019-01-09 21:01 | ED Physician Documentation ---
PD HPI HEADACHE - Stated complaint Stated Complaint: MIGRAINE - Chief complaint Chief Complaint: Neuro - History obtained from History obtained from: Patient - History of Present Illness Timing - onset: How many weeks ago (1) Timing - duration: Days Timing - details: Gradual onset, Still present Worst headache ever?: Worst headache ever? (No) Location: Global Associated symptoms: Nausea. No: Fever, Stiff neck, Vomiting Improved by: Nothing Worsened by: Light Similar symptoms before: Diagnosis Recently seen: Emergency Dept - Additional information Additional information: This is a 23-year-old whom I saw last night for migraine headache who presents again tonight with complaints that she went home and slept but kept waking up and took her promethazine Maxalt and naproxen and still has an 8 out of 10 headache. She has not been vomiting. There is no change in the character of the headache. She denies fever. 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 Scheduled for MRI 01/17 [facility] - Past Surgical History Past Surgical History: Yes HEENT: Myringotomy (tubes), Tonsil/Adenoidectomy - Present Medications Home Medications: Ambulatory Orders Medication Instructions Recorded Confirmed Baclofen [Lioresal] 10 mg PO DAILY 12/16/17 07/08/18 Topiramate [Topamax] 100 mg PO DAILY 12/16/17 07/08/18 Amitriptyline HCl 10 mg PO DAILY 01/19/18 07/08/18 Modafinil 100 mg PO BID 06/19/18 07/08/18 Rizatriptan Benzoate [Maxalt] 10 mg PO DAILY 06/19/18 07/08/18 Ibuprofen [Ibu] 800 mg PO TID PRN #30 tablet 06/25/18 07/08/18 Ibuprofen [Motrin] 800 mg PO Q8H PRN #30 tablet 07/08/18 Albuterol Sulf [Ventolin Hfa 1 - 2 puffs INH Q4HR PRN #1 inhaler 09/05/18 Inhaler] Amox/Clav 875/125 [Augmentin] 1 each PO Q12H #20 tablet 09/05/18 Benzonatate [Tessalon Perle] 100 - 200 mg PO TID PRN #30 capsule 09/05/18 Benzonatate [Tessalon] 100 mg PO TID 09/05/18 09/05/18 Codeine Phosphate/Guaifenesin 5 ml PO 09/05/18 [Guaifen-Codeine 100-10 mg/5 ml] Pseudoephedrine [Sudafed] 30 mg PO Q6H 09/05/18 09/05/18 Naproxen 500 mg PO BID #20 tablet 10/25/18 Tramadol HCl 50 mg PO Q6H PRN #15 tablet 10/25/18 dexAMETHasone [Decadron] 4 mg PO DAILY #5 tablet 10/25/18 Oxycodone HCl/Acetaminophen 1 - 2 each PO Q6H PRN #14 tablet 12/11/18 [Percocet 5-325 mg Tablet] - Allergies Allergies/Adverse Reactions: Allergies Allergy/AdvReac Type Severity Reaction Status Date / Time nickel Allergy Rash Verified 01/09/19 20:17 - Social History Does the pt smoke?: Yes Smoking Status: Current every day smoker Does the pt drink ETOH?: Yes Does the pt have substance abuse?: No - Immunizations Immunizations are current?: Yes - POLST Patient has POLST: No PD ED PE NORMAL - Vitals Vital signs reviewed: Yes - General General: Alert and oriented X 3, No acute distress, Well developed/nourished - HEENT HEENT: Atraumatic, PERRL, EOMI - Respiratory Respiratory: No respiratory distress - Neuro Neuro: Alert and oriented X 3, 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, No motor deficit, No sensory deficit, Normal speech Results - Vitals Vitals: Vital Signs - 24 hr 01/09/19 01/09/19 01/09/19 20:15 22:18 22:21 Temperature 36.2 C L Heart Rate 96 69 Respiratory 16 20 Rate Blood Pressure 129/90 H 113/77 O2 Saturation 100 100 01/09/19 01/09/19 01/09/19 22:38 22:39 22:40 Temperature Heart Rate 75 77 77 Respiratory 18 21 23 Rate Blood Pressure O2 Saturation 100 99 99 01/09/19 01/09/19 01/09/19 22:41 22:42 22:52 Temperature Heart Rate 82 72 65 Respiratory 20 19 20 Rate Blood Pressure 109/76 117/80 O2 Saturation 98 99 100 01/09/19 23:05 Temperature Heart Rate 60 Respiratory 17 Rate Blood Pressure 116/79 O2 Saturation 100 Oxygen O2 Source Nasal cannula Oxygen Flow Rate 2 PD MEDICAL DECISION MAKING - ED course Complexity details: re-evaluated patient, d/w patient ED course: An IV was started and the patient was given titrated doses of propofol up to 70 mg in an attempt to break the headache without success. She was on a car pincher and respiratory was at the bedside with an tidal CO2 monitoring. Now ordered a dose of ketamine 40 mg to see if that will help to break this headache. 2332: Patient reports with the ketamine her headaches now down to a 5 out of 10 which she relates as a "functional" level. Departure - Departure Disposition: 01 Home, Self Care Clinical Impression: Headache Qualifiers: Headache type: unspecified Headache chronicity pattern: episodic headache Intractability: intractable Qualified Code(s): R51 - Headache Condition: Good Instructions: ED Cephalgia Unspecified Follow-Up: Neurologist,Your [Other] Comments: Home tonight and rest. Keep the appointment for the MRI that scheduled on January 17. Contact your neurologist about the 3 recent emergency department visits for the increasing headache. Return if your symptoms are worsening.
[2019-01-09] MEDS ORDERED: PROPOFOL 1000 MG/100 ML 100 ML IV SCH (22:00)
[2019-01-09] MEDS ORDERED: KETAMINE 500 MG/10 ML VIAL IVP STA (22:56)
[2019-01-09] MEDS ORDERED: PROPOFOL 200 MG/20 ML VIAL IVP STA (23:00)
[2019-01-09 23:58] VITALS: BP 126/88
== END 2019-01-09 23:57 | disposition home or self-care (01) ==
LOC: ED 20:11
DX: R51 Headache (principal); G93.9 Disorder of brain, unspecified; F17.200 Nicotine dependence, unspecified, uncomplicated
CPT/HCPCS: 96374; 96375; 99281

== ENCOUNTER 2019-01-18 13:15 | Outpatient (CLI) | payer OTHER ==
--- NOTE | 2019-01-18 16:35 | SLEEP CARE CONSULTATION ---
Information from patient questionnaire entered by Edwige Oswald. I have reviewed and concur with the information entered by Edwige Oswald. This document represents the service I personally performed and the decisions made by me, Soheila Anglin MD, [facility]. History of Present Illness Previous diagnosis: Other (IDEOPATHIC HYPERSOMNIA) Reason for CPAP/BiPAP follow up: six month Prior sleep studies: Yes Year and Where: 2017 [facility] additional information: HPI: Ms. Kinsey returned today for follow up of idiopathic hypersomnia. She was prescribed modafinil 200 mg in the morning and 200 mg at noon. The patient reports some improvement in her excessive daytime sleepiness but still has to drink a lot of coffee. She still naps all day on weekends when she does not take the medication. She says that the naps are not refreshing. She continues to get adequate sleep at night. No side effect such as headache. Subjective Initial Ridgeway Sleepiness Scale score: 17 Current Ridgeway Sleepiness Scale score: 20 Allergies and Home Medications Drug allergies reviewed: Yes Home medication list reviewed: Yes Allergy and home medication list: Current Medications: Maxalt, Aimovic, promethazine, naproxen, prednisone, Topamax, modafinil. Review of Systems Review of systems same as previous: Yes Physical Exam Height: 5 ft 4.5 in Weight: 147 lb Body Mass Index: 24.8 BMI Classification: Healthy weight Impression and Plan IMPRESSION: 1. Idiopathic hypersomnia, with persistent daytime sleepiness on the maximum dose of modafinil. I will add methylphenidate 5 mg during the day as needed for residual daytime sleepiness. PLAN: 1. Refill modafinil 200 mg to be taken twice a day as needed. 2. Prescription made for methylphenidate 5 mg qd on as needed basis daytime sleepiness; #30 without refill. Side effects were discussed. 3. Return for follow up in two months. I spent 100% of this 20 minute visit face to face with the patient with greater than 50% of this was spent time counseling the patient and coordination of care.
== END 2019-01-18 13:16 | disposition home or self-care (01) ==
LOC: SC 13:15
PROVIDERS: ATTEND Internal Medicine Pulmonary Disease
DX: G47.11 Idiopathic hypersomnia with long sleep time (principal)
CPT/HCPCS: 99212; 99213

== ENCOUNTER 2019-01-28 13:08 | Emergency (ER) | payer OTHER ==
--- NOTE | 2019-01-28 14:30 | ED Physician Documentation ---
History of Present Illness - Stated complaint Stated Complaint: HIGH HR/MED REACTION - Chief complaint Chief Complaint: Cardiac - History obtained from History obtained from: Patient - History of Present Illness Timing: How many weeks ago (1) Pain level max: 0 Pain level now: 0 - Additonal information Additional information: 23-year-old female presents to the emergency department stating she was started on Ritalin recently for hypersomnolence. She has a known lesion in her julio césar. She states that she is being treated with modafinil as well. She states that they added the Ritalin to keep her awake. She is on 5 mg. Has complained of intermittent palpitations since that time. She states that she has had these episodes for years, but are worse since starting the Ritalin. No chest pain. No shortness of breath. [place] here for evaluation. Review of Systems Ten Systems: 10 systems reviewed and negative Constitutional: denies: Fever, Chills Throat: denies: Sore throat Cardiac: reports: Palpitations. 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 : None HEENT: None Psych: None Musculoskeletal: None Derm: None - Past Surgical History Past Surgical History: Yes HEENT: Myringotomy (tubes), Tonsil/Adenoidectomy - Present Medications Home Medications: Ambulatory Orders Medication Instructions Recorded Confirmed Topiramate [Topamax] 100 mg PO DAILY 12/16/17 01/28/19 Amitriptyline HCl 10 mg PO DAILY 01/19/18 01/28/19 Modafinil 400 mg PO BID 06/19/18 01/28/19 Rizatriptan Benzoate [Maxalt] 10 mg PO DAILY PRN 06/19/18 01/28/19 Erenumab-Aooe [Aimovig 70 mg SQ ONCE 01/28/19 01/28/19 Autoinjector] Methylphenidate [Ritalin] 5 mg PO PRN PRN 01/28/19 01/28/19 Promethazine HCl 25 mg PO PRN PRN 01/28/19 01/28/19 Tramadol HCl 50 mg PO Q6H PRN 01/28/19 01/28/19 - Allergies Allergies/Adverse Reactions: Allergies Allergy/AdvReac Type Severity Reaction Status Date / Time nickel Allergy Rash Verified 01/28/19 13:28 - Social History Does the pt smoke?: Yes Smoking Status: Current every day smoker Does the pt drink ETOH?: Yes Does the pt have substance abuse?: No - Immunizations Immunizations are current?: Yes - POLST Patient has POLST: No PD ED PE NORMAL - Vitals Vital signs reviewed: Yes - General General: Alert and oriented X 3, No acute distress, Well developed/nourished - HEENT HEENT: PERRL, Moist mucous membranes - Neck Neck: Supple, no meningeal sign - Cardiac Cardiac: RRR, Strong equal pulses - Respiratory Respiratory: No respiratory distress, Clear bilaterally - Abdomen Abdomen: Soft, Non tender, Non distended - Derm Derm: Warm and dry - Extremities Extremities: No edema, No calf tenderness / cord - Neuro Neuro: Alert and oriented X 3 - Psych Psych: Normal mood, Normal affect Results - Vitals Vitals: Vital Signs - 24 hr 01/28/19 13:25 Temperature 36.8 C Heart Rate 98 Respiratory 18 Rate Blood Pressure 133/81 H O2 Saturation 99 Oxygen O2 Source Room air PD MEDICAL DECISION MAKING - ED course Complexity details: considered differential, d/w patient ED course: EKG tracings from her apple watch reveal a sinus tachycardia. No acute findings on EKG here. Asymptomatic here. We will have her decrease her Ritalin to 2.5 mg. We will have her follow-up with her doctor for further care. Patient counseled regarding signs and symptoms for which I believe and urgent re- evaluation would be necessary. Patient with good understanding of and agreement to plan and is comfortable going home at this time This document was made in part using voice recognition software. While efforts are made to proofread this document, sound alike and grammatical errors may occur. Departure - Departure Disposition: 01 Home, Self Care Clinical Impression: Palpitations, Sinus tachycardia Condition: Good Instructions: ED Palpitations Follow-Up: Gilberto Castaneda MD [Primary Care Provider] - Within 1 week Comments: Follow up with your doctor for further care. Return if you worsen.Try to decrease your ritalin to 2.5mg
[2019-01-28 14:46] VITALS: BP 118/83
== END 2019-01-28 14:41 | disposition home or self-care (01) ==
LOC: ED 13:08
DX: R00.0 Tachycardia, unspecified (principal); G93.9 Disorder of brain, unspecified; F17.200 Nicotine dependence, unspecified, uncomplicated
CPT/HCPCS: 93005; 99283

== ENCOUNTER 2019-02-02 17:46 | Emergency (ER) | payer OTHER ==
[2019-02-02] MEDS ORDERED: SODIUM CHLORIDE 0.9% 1,000 ML IV ONE (18:44)
[2019-02-02] MEDS ORDERED: DEXAMETHASONE 10 MG/ML VIAL IVP STA (18:44)
[2019-02-02] MEDS ORDERED: SUMAtriptan 6 MG/0.5 ML VIAL SUBQ STA (18:44)
[2019-02-02] MEDS ORDERED: HALOPERIDOL 5 MG/ML VIAL IVP ONE (18:44)
[2019-02-02] MEDS ORDERED: KETOROLAC 30 MG/ML VIAL IVP STA (18:44)
--- NOTE | 2019-02-02 18:47 | ED Physician Documentation ---
PD HPI HEADACHE - Stated complaint Stated Complaint: MIGRAINE - Chief complaint Chief Complaint: Neuro - History obtained from History obtained from: Patient - History of Present Illness Timing - onset: Other (23-year-old woman with complicated migraines. Has had a headache worse than normal for the last 5 days that has been nonresponsive to naproxen, Phenergan, and tramadol. Of note she usually takes Rizatriptan at home but the [place] will not refill it until next month. She also takes maintenance amitriptyline and Topamax as well as Aimovig injections. Its a posterior headache coming to behind the eyes. Is associated with some neck pain but no neck stiffness. No fevers. She has been nauseous, light sensitive, and sound sensitive.) Review of Systems Constitutional: denies: Fever, Chills Eyes: reports: Photophobia. denies: Decreased vision Ears: denies: Ear pain Nose: denies: Rhinorrhea / runny nose PD PAST MEDICAL HISTORY - Past Medical History Past Medical History: Yes Cardiovascular: Murmur Respiratory: None Neuro: Migraines Endocrine/Autoimmune: None GI: None PETROLEUM INSPECTOR: Ovarian cysts : None HEENT: None Psych: None Musculoskeletal: None Derm: None - Past Surgical History Past Surgical History: Yes HEENT: Myringotomy (tubes), Tonsil/Adenoidectomy - Present Medications Home Medications: Ambulatory Orders Medication Instructions Recorded Confirmed Topiramate [Topamax] 100 mg PO DAILY 12/16/17 01/28/19 Amitriptyline HCl 10 mg PO DAILY 01/19/18 01/28/19 Modafinil 400 mg PO BID 06/19/18 01/28/19 Rizatriptan Benzoate [Maxalt] 10 mg PO DAILY PRN 06/19/18 01/28/19 Erenumab-Aooe [Aimovig 70 mg SQ ONCE 01/28/19 01/28/19 Autoinjector] Methylphenidate [Ritalin] 5 mg PO PRN PRN 01/28/19 01/28/19 Promethazine HCl 25 mg PO PRN PRN 01/28/19 01/28/19 Tramadol HCl 50 mg PO Q6H PRN 01/28/19 01/28/19 - Allergies Allergies/Adverse Reactions: Allergies Allergy/AdvReac Type Severity Reaction Status Date / Time nickel Allergy Rash Verified 02/02/19 17:58 - Social History Does the pt smoke?: Yes Smoking Status: Current every day smoker Does the pt drink ETOH?: Yes Does the pt have substance abuse?: No - Immunizations Immunizations are current?: Yes - POLST Patient has POLST: No PD ED PE NORMAL - Vitals Vital signs reviewed: Yes - General General: Alert and oriented X 3 (Uncomfortable and photophobic) - HEENT HEENT: PERRL, Pharynx benign - Neck Neck: Supple, no meningeal sign, No bony TTP - Neuro Neuro: Alert and oriented X 3, brand specialist 2-12 intact, No motor deficit, No sensory deficit, Normal speech Results - Vitals Vitals: Vital Signs - 24 hr 02/02/19 17:58 Temperature 36.6 C Heart Rate 89 Respiratory 15 Rate Blood Pressure 129/71 O2 Saturation 100 Oxygen O2 Source Room air PD MEDICAL DECISION MAKING - ED course ED course: The headache is gradual in onset and similar to prior headaches. As such I doubt subarachnoid hemorrhage. There are no infectious symptoms such as fever or stiff neck to make me suspect meningitis. No carbon monoxide exposure by history. After the ministration of IV Haldol, Toradol, dexamethasone, and subcutaneous Imitrex she was feeling much better and back to her baseline. Not pain-free but she was comfortable. Departure - Departure Disposition: 01 Home, Self Care Clinical Impression: Migraine Condition: Good Record reviewed to determine appropriate education?: Yes Instructions: ED Headache Migraine Comments: Call your doctor to arrange a follow-up appointment, make the next available appointment. In the interim, return anytime if worse or if new symptoms develop.
[2019-02-02 20:33] VITALS: BP 102/64
== END 2019-02-02 20:37 | disposition home or self-care (01) ==
LOC: ED 17:46
DX: G43.909 Migraine, unspecified, not intractable, without status migrainosus (principal); M54.2 Cervicalgia; F17.200 Nicotine dependence, unspecified, uncomplicated
CPT/HCPCS: 96361; 96374; 96375; 99282

== ENCOUNTER 2019-02-07 08:02 | Emergency (ER) | payer OTHER ==
[2019-02-07] MEDS ORDERED: SODIUM CHLORIDE 0.9% 1,000 ML IV ONE ×2 (08:27→11:41)
[2019-02-07] MEDS ORDERED: KETOROLAC 15 MG/ML VIAL IVP STA (08:27)
[2019-02-07] MEDS ORDERED: DIPHENOX/ATROPINE 2.5/0.025 MG TABLET PO STA (08:28)
[2019-02-07] MEDS ORDERED: ONDANSETRON 4 MG/2 ML VIAL IVP STA (08:28)
[2019-02-07] MEDS ORDERED: SUMAtriptan 6 MG/0.5 ML VIAL SUBQ STA (08:28)
[2019-02-07] MEDS ORDERED: MORPHINE 10 MG/ML VIAL IVP STA (11:41)
[2019-02-07] MEDS ORDERED: PROCHLORPERAZINE 10 MG/2 ML VIAL IVP STA (11:41)
[2019-02-07] MEDS ORDERED: DEXAMETHASONE 10 MG/ML VIAL IVP STA (13:57)
[2019-02-07] MEDS ORDERED: HYDROmorphone 2 MG/ML VIAL IVP STA (13:57)
--- NOTE | 2019-02-07 13:57 | ED Physician Documentation ---
PD HPI NVD - Stated complaint Stated Complaint: N/V/D ABD PX - Chief complaint Chief Complaint: Abd Pain - History obtained from History obtained from: Patient - History of Present Illness Timing - onset: Last night (onset last night about 1 am of nausea, near vomiting, and multiple diarrheal movements. Feeling some stomach cramping. Also feeling migraine oncoming this morning. Assuming the GI symptoms are food or viral.) Timing - duration: Hours Timing - details: Abrupt onset, Still present Associated symptoms: Abdominal pain (cramping intermittent). No: Fever, Dizzy, Near syncope / syncope Contributing factors: No: Sick contact, Bad food, Travel, Recent antibiotics Improved by: No: Vomiting Worsened by: Eating Similar symptoms before: Has not had sx before (no recurrent GI symptoms. Does have history of frequent migraines.) Review of Systems Constitutional: denies: Fever, Chills Nose: denies: Rhinorrhea / runny nose, Congestion Throat: denies: Sore throat Respiratory: denies: Cough GI: reports: Nausea, Diarrhea. denies: Abdominal Swelling, Vomiting, Bloody / black stool Neurologic: reports: Headache. denies: Focal weakness, Numbness PD PAST MEDICAL HISTORY - Past Medical History Cardiovascular: Murmur Respiratory: None Neuro: Migraines Endocrine/Autoimmune: None GI: None L D RN: Ovarian cysts : None HEENT: None Psych: None Musculoskeletal: None Derm: None - Past Surgical History Past Surgical History: Yes HEENT: Myringotomy (tubes), Tonsil/Adenoidectomy - Present Medications Home Medications: Ambulatory Orders Medication Instructions Recorded Confirmed Topiramate [Topamax] 100 mg PO DAILY 12/16/17 01/28/19 Amitriptyline HCl 10 mg PO DAILY 01/19/18 01/28/19 Modafinil 400 mg PO BID 06/19/18 01/28/19 Rizatriptan Benzoate [Maxalt] 10 mg PO DAILY PRN 06/19/18 01/28/19 Erenumab-Aooe [Aimovig 70 mg SQ ONCE 01/28/19 01/28/19 Autoinjector] Methylphenidate [Ritalin] 5 mg PO PRN PRN 01/28/19 01/28/19 Promethazine HCl 25 mg PO PRN PRN 01/28/19 01/28/19 Tramadol HCl 50 mg PO Q6H PRN 01/28/19 01/28/19 Diphenoxylate/Atropine [Lomotil] 1 each PO QID PRN #12 tablet 02/07/19 Hydrocodone/Acetaminophen 1 each PO Q6H PRN #14 tablet 02/07/19 [Hydrocodon-Acetaminophen 5-325] Ondansetron Odt [Zofran] 4 mg TL Q6H PRN #20 tablet 02/07/19 dexAMETHasone [Decadron] 4 mg PO DAILY #5 tablet 02/07/19 - Allergies Allergies/Adverse Reactions: Allergies Allergy/AdvReac Type Severity Reaction Status Date / Time nickel Allergy Rash Verified 02/07/19 08:13 - Social History Does the pt smoke?: Yes Smoking Status: Current every day smoker Does the pt drink ETOH?: Yes Does the pt have substance abuse?: No - Immunizations Immunizations are current?: Yes - POLST Patient has POLST: No PD ED PE NORMAL - Vitals Vital signs reviewed: Yes - General General: Alert and oriented X 3, No acute distress, Well developed/nourished - HEENT HEENT: Pharynx benign - Neck Neck: Supple, no meningeal sign, No adenopathy - Cardiac Cardiac: RRR, No murmur - Respiratory Respiratory: Clear bilaterally - Abdomen Abdomen: Normal bowel sounds, Soft, Non distended, No organomegaly, Other (some tender in epigastric area without guarding nor percussion tenderness. ) - Derm Derm: Normal color, Warm and dry - Neuro Neuro: Alert and oriented X 3, central sterile supply technician 2-12 intact, No motor deficit, No sensory deficit, Normal speech Results - Vitals Vitals: Vital Signs - 24 hr 02/07/19 02/07/19 02/07/19 08:12 11:13 12:16 Temperature 97 C H Heart Rate 110 H 64 69 Respiratory 20 18 18 Rate Blood Pressure 125/71 100/57 L 100/58 L O2 Saturation 100 96 97 02/07/19 02/07/19 02/07/19 13:20 14:20 14:42 Temperature Heart Rate 64 65 71 Respiratory 16 20 16 Rate Blood Pressure 107/65 109/68 89/62 L O2 Saturation 98 97 99 02/07/19 14:48 Temperature Heart Rate 63 Respiratory 16 Rate Blood Pressure 107/68 O2 Saturation 99 Oxygen O2 Source Room air PD MEDICAL DECISION MAKING - ED course Complexity details: re-evaluated patient (took time for nursing to get to IV. She is feeling stepwise improved with fluids and meds. ), considered differential, d/w patient Departure - Departure Disposition: 01 Home, Self Care Clinical Impression: Nausea vomiting and diarrhea Migraine Qualifiers: Migraine type: without aura Status migrainosus presence: without status migrainosus Intractability: not intractable Qualified Code(s): G43.009 - Migraine without aura, not intractable, without status migrainosus Condition: Stable Record reviewed to determine appropriate education?: Yes Instructions: ED Nausea Vomiting Follow-Up: Gilberto Castaneda MD [Primary Care Provider] - Prescriptions: dexAMETHasone [Decadron] 4 mg PO DAILY #5 tablet Diphenoxylate/Atropine [Lomotil] 1 each PO QID PRN #12 tablet PRN Reason: Diarrhea Hydrocodone/Acetaminophen [Hydrocodon-Acetaminophen 5-325] 1 each PO Q6H PRN #14 tablet PRN Reason: pain Ondansetron Odt [Zofran] 4 mg TL Q6H PRN #20 tablet PRN Reason: Nausea / Vomiting Comments: The nausea and diarrhea sound like food related or viral illness and should improve over a day or so. This seems to have also triggered a migraine. Rest at home today. Stay well-hydrated. Use Zofran if needed for nausea and Lomotil for diarrhea. Decadron daily for several days to help with the migraine. Add hydrocodone if needed for pains. Forms: Activity restrictions Discharge Date/Time: 02/07/19 14:55
[2019-02-07 14:48] VITALS: BP 107/68
== END 2019-02-07 14:55 | disposition home or self-care (01) ==
LOC: ED 08:02
DX: G43.009 Migraine without aura, not intractable, without status migrainosus (principal); R11.2 Nausea with vomiting, unspecified; R19.7 Diarrhea, unspecified; F17.200 Nicotine dependence, unspecified, uncomplicated
CPT/HCPCS: 96361; 96372; 96374; 96375; 99284; 99285; A9270; J1170

== ENCOUNTER 2019-03-21 17:18 | Emergency (ER) | payer OTHER ==
[2019-03-21] MEDS ORDERED: METOCLOPRAMIDE 10 MG/2 ML VIAL IVP STA (19:19)
[2019-03-21] MEDS ORDERED: MAGNESIUM SULFATE 2 GRAM 2 GM/50 ML BAG IV ONE (19:19)
[2019-03-21] MEDS ORDERED: SODIUM CHLORIDE 0.9% 1,000 ML IV ONE (19:19)
[2019-03-21] MEDS ORDERED: diphenhydrAMINE INJ 50 MG/ML VIAL IVP STA (19:19)
[2019-03-21] MEDS ORDERED: KETOROLAC 30 MG/ML VIAL IVP STA ×2 (19:19→22:33)
--- NOTE | 2019-03-21 19:21 | ED Physician Documentation ---
History of Present Illness - Stated complaint Stated Complaint: HEADACHE - POSSIBLE MIGRAINE - Chief complaint Chief Complaint: Heent - Additonal information Additional information: This is a 23-year-old female with a history of migraines who presents with 3 days of migraine. She states her headache began gradually 3 days ago and has gotten worse since then. She is on multiple medications for migraine prevention as well as abortive therapy with a triptan, tramadol, and Excedrin, but these have not been effective. Her headache is currently severe, located behind her eyes and on her occipital part of her head worse on the right. She has some photophobia and phonophobia. She has had nausea and vomiting. She denies any weakness or numbness other than she has some baseline neuropathy which is unchanged. 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: Ovarian cysts : None HEENT: None Psych: None Musculoskeletal: None Derm: None - Past Surgical History Past Surgical History: Yes HEENT: Myringotomy (tubes), Tonsil/Adenoidectomy - Present Medications Home Medications: Ambulatory Orders Medication Instructions Recorded Confirmed Topiramate [Topamax] 100 mg PO DAILY 12/16/17 01/28/19 Amitriptyline HCl 10 mg PO DAILY 01/19/18 01/28/19 Modafinil 400 mg PO BID 06/19/18 01/28/19 Rizatriptan Benzoate [Maxalt] 10 mg PO DAILY PRN 06/19/18 01/28/19 Erenumab-Aooe [Aimovig 70 mg SQ ONCE 01/28/19 01/28/19 Autoinjector] Methylphenidate [Ritalin] 5 mg PO PRN PRN 01/28/19 01/28/19 Promethazine HCl 25 mg PO PRN PRN 01/28/19 01/28/19 Tramadol HCl 50 mg PO Q6H PRN 01/28/19 01/28/19 Diphenoxylate/Atropine [Lomotil] 1 each PO QID PRN #12 tablet 02/07/19 Hydrocodone/Acetaminophen 1 each PO Q6H PRN #14 tablet 02/07/19 [Hydrocodon-Acetaminophen 5-325] Ondansetron Odt [Zofran] 4 mg TL Q6H PRN #20 tablet 02/07/19 dexAMETHasone [Decadron] 4 mg PO DAILY #5 tablet 02/07/19 - Allergies Allergies/Adverse Reactions: Allergies Allergy/AdvReac Type Severity Reaction Status Date / Time nickel Allergy Rash Verified 03/21/19 17:28 - Social History Does the pt smoke?: Yes Smoking Status: Current every day smoker Does the pt drink ETOH?: Yes Does the pt have substance abuse?: No - Immunizations Immunizations are current?: Yes - POLST Patient has POLST: No PD ED PE NORMAL - Vitals Vital signs reviewed: Yes - General General: Alert and oriented X 3, Other (Uncomfortable but nontoxic-appearing) - HEENT HEENT: Atraumatic, PERRL - Neck Neck: Supple, no meningeal sign - Cardiac Cardiac: RRR, No murmur - Respiratory Respiratory: Clear bilaterally - Abdomen Abdomen: Normal bowel sounds, Soft, Non tender, Non distended - Derm Derm: Warm and dry - Extremities Extremities: No deformity - Neuro Neuro: Alert and oriented X 3, inspector mechanical 2-12 intact, No motor deficit, No sensory deficit, Normal speech - Psych Psych: Normal mood, Normal affect Results - Vitals Vitals: Vital Signs - 24 hr 03/21/19 03/21/19 03/21/19 17:28 18:49 20:36 Temperature 36.7 C 36.7 C Heart Rate 73 90 62 Respiratory 14 16 18 Rate Blood Pressure 131/77 H 122/65 109/72 O2 Saturation 100 100 100 03/21/19 23:16 Temperature 36.6 C Heart Rate 58 L Respiratory 16 Rate Blood Pressure 103/70 O2 Saturation 99 Oxygen O2 Source Room air PD MEDICAL DECISION MAKING - ED course Complexity details: considered differential (Intracranial hemorrhage, migraine, tension headache, rebound headache) ED course: Patient presents with her typical migraine, she has no red flag symptoms, neurologic exam is normal. She was given a migraine cocktail as well as IV fluids and she had some improvement of her headache with this. However she continued to have significant headache so she was given a dose of Haldol, with further improvement in her symptoms. I reassessed patient and she is well- appearing, her headache is now down to moderate severity. I gave her another dose of Toradol, 2 mg more of Haldol, and sumatriptan, and on reevaluation her headache was slightly more improved. She is feeling well enough to go home at this time, and if she is developing worsening symptoms or her headache is becoming more severe and not manageable at home she will return to the ED. I recommended follow-up with her primary care provider and neurologist. Pt agreed and was discharged home. Departure - Departure Disposition: 01 Home, Self Care Clinical Impression: Migraine Condition: Good Instructions: ED Cephalgia Unspecified Follow-Up: Gilberto Castaneda MD [Primary Care Provider] - Within 1 week Comments: You were seen today for migraine headache, I'm glad you are feeling a bit better, please follow-up with a neurologist and your primary care provider. If you are having worsening symptoms, especially weakness, new numbness, confusion, or severe headaches which are different than your typical migraines, return to the emergency department. Discharge Date/Time: 03/21/19 23:20
[2019-03-21] MEDS ORDERED: HALOPERIDOL 5 MG/ML VIAL IVP PRN (20:40)
[2019-03-21] MEDS ORDERED: HALOPERIDOL 5 MG/ML VIAL IVP ONE (22:32)
[2019-03-21] MEDS ORDERED: SUMAtriptan 6 MG/0.5 ML VIAL SUBQ STA (22:32)
[2019-03-21] MEDS ORDERED: HALOPERIDOL 5 MG/ML VIAL IVP STA (22:33)
[2019-03-21 23:22] VITALS: BP 103/70
== END 2019-03-21 23:20 | disposition home or self-care (01) ==
LOC: ED 17:18
DX: G43.909 Migraine, unspecified, not intractable, without status migrainosus (principal); F17.200 Nicotine dependence, unspecified, uncomplicated
CPT/HCPCS: 96365; 96375; 96376; 99284; 99285; J1200; J2765

== ENCOUNTER 2019-03-22 13:00 | Outpatient (CLI) | payer OTHER ==
--- NOTE | 2019-03-22 13:20 | SLEEP CARE CONSULTATION ---
Information from patient questionnaire entered by Edwige Oswald. I have reviewed and concur with the information entered by Edwige Oswald. This document represents the service I personally performed and the decisions made by me, Soheila Anglin MD, [facility]. History of Present Illness Previous diagnosis: Other (Idiopathic Hypersomnia) Reason for follow up: other (2 month ) Prior sleep studies: Yes HPI additional information: HPI: Ms. Kinsey returned today for follow up of idiopathic hypersomnia. She was prescribed modafinil 200 mg in the morning and 200 mg at noon. The patient reports some improvement in her excessive daytime sleepiness but still has to drink a lot of coffee. She still naps all day on weekends when she does not take the medication. She says that the naps are not refreshing. She continues to get adequate sleep at night. On her last visit I added methylphenidate 5 mg once a day on as needed basis. She reports additional improvement in daytime sleepiness. However, she reports that she has tachycardia when taking 5 mg. Her heart rate went up to 172 beats per minute and she can feel the palpitation. She now takes 2.5 mg. [place]. Subjective Initial [place] Sleepiness Scale score: 17 Current [place] Sleepiness Scale score: 18 Allergies and Home Medications Drug allergies reviewed: Yes Home medication list reviewed: Yes Allergy and home medication list: Current Medications: Maxalt, Aimovic, promethazine, naproxen, prednisone, Topamax, modafinil, methylphennidate Allergies: nickel Review of Systems Review of systems same as previous: Yes Physical Exam Weight: 155 lb Weight change since last visit: + 7 Impression and Plan IMPRESSION: 1. Idiopathic hypersomnia, with persistent daytime sleepiness on the maximum dose of modafinil. She does have additional improvement on meth ylphennidate 2.5 5 mg. However, she does have tachycardia at 5 mg. She may continue to take the stimulant on as needed basis. PLAN: 1. Primary care provider to refill both modafinil and methylphennidate. 2. Return in 5 6 months before she moves to [place] to get her medical records. I spent 100% of this 20 minute visit face to face with the patient with greater than 50% of this was spent time counseling the patient and coordination of care.
== END 2019-03-22 13:01 ==
LOC: SC 13:00
PROVIDERS: ATTEND Internal Medicine Pulmonary Disease
DX: G47.11 Idiopathic hypersomnia with long sleep time (principal)
CPT/HCPCS: 99212; 99213

== ENCOUNTER 2019-03-28 21:39 | Emergency (ER) | payer OTHER ==
[2019-03-28] MEDS ORDERED: HALOPERIDOL 5 MG/ML VIAL IVP ONE (22:37)
[2019-03-28] MEDS ORDERED: MAGNESIUM SULFATE 2 GRAM 2 GM/50 ML BAG IV ONE (22:37)
[2019-03-28] MEDS ORDERED: METOCLOPRAMIDE 10 MG/2 ML VIAL IVP STA (22:37)
[2019-03-28] MEDS ORDERED: KETOROLAC 15 MG/ML VIAL IVP STA (22:37)
[2019-03-28] MEDS ORDERED: diphenhydrAMINE INJ 50 MG/ML VIAL IVP STA (22:37)
--- NOTE | 2019-03-28 22:39 | ED Physician Documentation ---
History of Present Illness - Stated complaint Stated Complaint: OLIVERA - Chief complaint Chief Complaint: Neuro - Additonal information Additional information: This is a 23-year-old female with a history of migraines who presents with a recurrence of her headache. She states it is bifrontal, diffuse and associated with photophobia and phonophobia. It started as moderate and then has become more severe. She has tried her home medications these have not been effective. She denies any weakness or numbness, or confusion, no fever. This is her typical headache. Review of Systems Constitutional: denies: Fever Eyes: reports: Photophobia. 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 : None HEENT: None Psych: None Musculoskeletal: None Derm: None - Past Surgical History Past Surgical History: Yes HEENT: Myringotomy (tubes), Tonsil/Adenoidectomy - Present Medications Home Medications: Ambulatory Orders Medication Instructions Recorded Confirmed Topiramate [Topamax] 100 mg PO DAILY 12/16/17 01/28/19 Amitriptyline HCl 10 mg PO DAILY 01/19/18 01/28/19 Modafinil 400 mg PO BID 06/19/18 01/28/19 Rizatriptan Benzoate [Maxalt] 10 mg PO DAILY PRN 06/19/18 01/28/19 Erenumab-Aooe [Aimovig 70 mg SQ ONCE 01/28/19 01/28/19 Autoinjector] Methylphenidate [Ritalin] 5 mg PO PRN PRN 01/28/19 01/28/19 Promethazine HCl 25 mg PO PRN PRN 01/28/19 01/28/19 Tramadol HCl 50 mg PO Q6H PRN 01/28/19 01/28/19 Diphenoxylate/Atropine [Lomotil] 1 each PO QID PRN #12 tablet 02/07/19 Hydrocodone/Acetaminophen 1 each PO Q6H PRN #14 tablet 02/07/19 [Hydrocodon-Acetaminophen 5-325] Ondansetron Odt [Zofran] 4 mg TL Q6H PRN #20 tablet 02/07/19 dexAMETHasone [Decadron] 4 mg PO DAILY #5 tablet 02/07/19 SUMAtriptan succinate [Sumatriptan 6 mg SQ DAILY PRN #1 unit 03/29/19 Succinate] - Allergies Allergies/Adverse Reactions: Allergies Allergy/AdvReac Type Severity Reaction Status Date / Time nickel Allergy Rash Verified 03/21/19 17:28 - Social History Does the pt smoke?: Yes Smoking Status: Current every day smoker Does the pt drink ETOH?: Yes Does the pt have substance abuse?: No - Immunizations Immunizations are current?: Yes - POLST Patient has POLST: No PD ED PE NORMAL - Vitals Vital signs reviewed: Yes - General General: Alert and oriented X 3, No acute distress - HEENT HEENT: PERRL - Neck Neck: Supple, no meningeal sign - Cardiac Cardiac: RRR - Respiratory Respiratory: No respiratory distress - Abdomen Abdomen: Soft, Non distended - Derm Derm: Warm and dry - Extremities Extremities: No deformity - Neuro Neuro: Alert and oriented X 3, sinter feeder 2-12 intact, No motor deficit, No sensory deficit, Normal speech - Psych Psych: Normal mood, Normal affect Results - Vitals Vitals: Vital Signs - 24 hr 03/28/19 03/29/19 21:46 00:41 Temperature 36 C L Heart Rate 78 87 Respiratory 18 16 Rate Blood Pressure 126/83 H 124/80 O2 Saturation 100 99 Oxygen O2 Source Room air PD MEDICAL DECISION MAKING - ED course Complexity details: considered differential (Migraine, tension headache, intracranial hemorrhage, Rebound headache) ED course: Patient is nontoxic-appearing with a normal neurologic exam. She presents with her typical migraine headache, which is chronic and recurring. She does follow with a neurologist and is already on extensive medications for headaches. She has no signs of infection, trauma, or other red flags for intracranial pathology that would require further work-up or investigation today. She was given Reglan, Toradol, Haldol, and magnesium, with some improvement in her symptoms, a second dose of Haldol and Toradol as well as sumatriptan further improved her headache. She had enough improvement that she was able to tolerate p.o., And would like to go home. I discussed continued PCP and neurology follow-up and return precautions with the patient. I provided her with a prescription for sumatriptan as she is out of her current triptan, and patient was discharged home in the care of her partner Departure - Departure Disposition: 01 Home, Self Care Clinical Impression: Headache Qualifiers: Headache type: unspecified Headache chronicity pattern: acute headache Intractability: not intractable Qualified Code(s): R51 - Headache Condition: Good Instructions: ED Cephalgia Unspecified Prescriptions: SUMAtriptan succinate [Sumatriptan Succinate] 6 mg SQ DAILY PRN #1 unit PRN Reason: Headache Comments: Please continue to follow-up with your neurologist on your headaches, if you developing new or concerning symptoms such as severe headache with different characteristics than your typical headache, or any weakness or numbness or other concerning symptoms, return to the emergency department. Discharge Date/Time: 03/29/19 00:55
[2019-03-28] MEDS ORDERED: SUMAtriptan 6 MG/0.5 ML VIAL SUBQ STA (23:55)
[2019-03-29] MEDS ORDERED: KETOROLAC 30 MG/ML VIAL IVP STA (00:01)
[2019-03-29] MEDS ORDERED: HALOPERIDOL 5 MG/ML VIAL IVP ONE (00:02)
[2019-03-29 00:42] VITALS: BP 124/80
== END 2019-03-29 00:55 | disposition home or self-care (01) ==
LOC: ED 21:39
DX: G43.709 Chronic migraine without aura, not intractable, without status migrainosus (principal); F17.200 Nicotine dependence, unspecified, uncomplicated
CPT/HCPCS: 96365; 96372; 96375; 96376; 99284; 99285; J1200; J2765

== ENCOUNTER 2019-05-02 17:32 | Emergency (ER) | payer OTHER ==
[2019-05-02] MEDS ORDERED: KETOROLAC 15 MG/ML VIAL IVP STA ×2 (18:07→19:53)
[2019-05-02] MEDS ORDERED: SUMAtriptan 6 MG/0.5 ML VIAL SUBQ STA (18:07)
[2019-05-02] MEDS ORDERED: SODIUM CHLORIDE 0.9% 1,000 ML IV ONE (18:07)
[2019-05-02] MEDS ORDERED: BUTALB/ACETAM/CAFF 50/325/40MG TABLET PO STA (18:07)
[2019-05-02] MEDS ORDERED: METOCLOPRAMIDE 10 MG/2 ML VIAL IVP STA ×2 (18:07→21:20)
[2019-05-02] MEDS ORDERED: diphenhydrAMINE INJ 50 MG/ML VIAL IVP STA (18:07)
[2019-05-02] MEDS ORDERED: DEXAMETHASONE 10 MG/ML VIAL IVP STA (18:07)
--- NOTE | 2019-05-02 18:08 | ED Physician Documentation ---
History of Present Illness - Stated complaint Stated Complaint: OLIVERA - Chief complaint Chief Complaint: General - Additonal information Additional information: This is a 23-year-old female who is known to me, she has a history of migraines and is established with a neurologist and is on abortive therapy as well as prophylactic medications. She presents with a 4-day recurrence of her migraine, she states is bifrontal, diffuse, associated photophobia and phonophobia. It currently is severe. She has tried home medications including rizatriptan, ibuprofen, and she has not had good effect with these. She denies weakness, no numbness of than her baseline lower extremity neuropathy, no confusion or fever. This feels similar to her typical headache in character, though it is a bit more severe. 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: Ovarian cysts : None HEENT: None Psych: None Musculoskeletal: None Derm: None - Past Surgical History Past Surgical History: Yes HEENT: Myringotomy (tubes), Tonsil/Adenoidectomy - Present Medications Home Medications: Ambulatory Orders Medication Instructions Recorded Confirmed Topiramate [Topamax] 100 mg PO DAILY 12/16/17 01/28/19 Amitriptyline HCl 10 mg PO DAILY 01/19/18 01/28/19 Rizatriptan Benzoate [Maxalt] 10 mg PO DAILY PRN 06/19/18 01/28/19 modafiniL [Modafinil] 400 mg PO BID 06/19/18 01/28/19 Erenumab-Aooe [Aimovig 70 mg SQ ONCE 01/28/19 01/28/19 Autoinjector] Methylphenidate [Ritalin] 5 mg PO PRN PRN 01/28/19 01/28/19 Promethazine HCl 25 mg PO PRN PRN 01/28/19 01/28/19 Tramadol HCl 50 mg PO Q6H PRN 01/28/19 01/28/19 Diphenoxylate/Atropine [Lomotil] 1 each PO QID PRN #12 tablet 02/07/19 Hydrocodone/Acetaminophen 1 each PO Q6H PRN #14 tablet 02/07/19 [Hydrocodon-Acetaminophen 5-325] Ondansetron Odt [Zofran] 4 mg TL Q6H PRN #20 tablet 02/07/19 dexAMETHasone [Decadron] 4 mg PO DAILY #5 tablet 02/07/19 SUMAtriptan succinate [Sumatriptan 6 mg SQ DAILY PRN #1 unit 03/29/19 Succinate] - Allergies Allergies/Adverse Reactions: Allergies Allergy/AdvReac Type Severity Reaction Status Date / Time nickel Allergy Rash Verified 05/02/19 17:39 - Social History Does the pt smoke?: Yes Smoking Status: Current every day smoker Does the pt drink ETOH?: Yes Does the pt have substance abuse?: No - Immunizations Immunizations are current?: Yes - POLST Patient has POLST: No PD ED PE NORMAL - Vitals Vital signs reviewed: Yes - General General: Alert and oriented X 3 - HEENT HEENT: PERRL - Neck Neck: Supple, no meningeal sign - Cardiac Cardiac: RRR, No murmur - Respiratory Respiratory: Clear bilaterally - Abdomen Abdomen: Normal bowel sounds, Soft, Non tender, Non distended - Derm Derm: Warm and dry - Extremities Extremities: No deformity - Neuro Neuro: Alert and oriented X 3, tension worker 2-12 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, No motor deficit, No sensory deficit, Normal speech - Psych Psych: Normal mood, Normal affect Results - Vitals Vitals: Vital Signs - 24 hr 05/02/19 05/02/19 05/02/19 17:39 17:59 19:08 Temperature 36.5 C 36.8 C 36.7 C Heart Rate 96 82 66 Respiratory 18 18 17 Rate Blood Pressure 130/75 118/81 H 121/84 H O2 Saturation 100 99 92 05/02/19 22:20 Temperature 36.7 C Heart Rate 75 Respiratory 17 Rate Blood Pressure 110/71 O2 Saturation 97 Oxygen O2 Source Room air PD MEDICAL DECISION MAKING - ED course Complexity details: considered differential (Migraine, tension headache, Intracranial hemorrhage, Rebound headache) ED course: On arrival patient is uncomfortable and nontoxic-appearing, she is neurolog ically intact. Her headache is similar to her past headaches, has no red flags, no signs of infection, no head trauma, was not sudden in onset, repeat imaging today is not indicated. I have seen patient several times for similar complaints and this is very similar to her past presentations as well. IV was inserted and she was given a migraine cocktail with Reglan, Benadryl, normal saline, toradol, fiorect. She did require a second round of medications with haldol and another dose of reglan. Her headache improved, she felt that she was at a functional level of pain, and that she was well enough to go home. Neurologic exam remained unremarkable. I discussed follow-up with her neurologist, and return precautions with worsening or new concerning symptoms. Patient agreed with this plan and was discharged in good condition Departure - Departure Disposition: 01 Home, Self Care Clinical Impression: Headache Qualifiers: Headache type: unspecified Headache chronicity pattern: unspecified pattern Intractability: not intractable Qualified Code(s): R51 - Headache Condition: Good Instructions: ED Cephalgia Unspecified Comments: Please follow-up with your neurologist and your primary care provider on your headaches. If you develop new or concerning symptoms such as severely worsening headache, new numbness or weakness, fever, or other concerning symptoms return to the emergency department Forms: Activity restrictions Discharge Date/Time: 05/02/19 22:24
[2019-05-02] MEDS ORDERED: HALOPERIDOL 5 MG/ML VIAL IVP ONE (19:53)
[2019-05-02 22:21] VITALS: BP 110/71
== END 2019-05-02 22:24 | disposition home or self-care (01) ==
LOC: ED 17:32
DX: R51 Headache (principal); H53.149 Visual discomfort, unspecified; Z86.69 Personal history of other diseases of the nervous system and sense organs; F17.200 Nicotine dependence, unspecified, uncomplicated
CPT/HCPCS: 96361; 96372; 96374; 96375; 96376; 99284; 99285; A9270; J1200; J2765

== ENCOUNTER 2019-06-14 19:09 | Emergency (ER) | payer OTHER ==
[2019-06-14] MEDS ORDERED: SODIUM CHLORIDE 0.9% 1,000 ML IV ONE (19:32)
[2019-06-14] MEDS ORDERED: PROCHLORPERAZINE 10 MG/2 ML VIAL IVP STA (19:33)
[2019-06-14] MEDS ORDERED: DEXAMETHASONE 10 MG/ML VIAL IVP STA (19:33)
[2019-06-14] MEDS ORDERED: MAGNESIUM SULFATE 1 GM/2 ML VIAL IVP STA (19:33)
--- NOTE | 2019-06-14 19:38 | ED Physician Documentation ---
PD HPI HEADACHE - Stated complaint Stated Complaint: MIGRAINE - Chief complaint Chief Complaint: Neuro - History obtained from History obtained from: Patient, Family - History of Present Illness Timing - details: Gradual onset, Still present Location: Left Quality: Stabbing Associated symptoms: No: Fever, Stiff neck, Nausea, Vomiting, Syncope, Seizure Similar symptoms before: Diagnosis - Additional information Additional information: 24 YEAR OLD FEMALE WITH A LONG STANDING HISTORY OF HEADACHE, INITIALLY STARTED AT 12 YEARS OF AGO AND IT WENT AWAY AND CAME BACK 3 YEARS AGO, PRESENTS TO THE EMERGENCY DEPARNYENT BECAUSE OF 2 DAYS OF GRADUAL ONSET OF HER TYPICAL MIGRAINE HEADACHE THAT HAS PERSISTED. PATIENT HAD BEEN TREATED WITH MULTIPLE MEDICATIONS AND THERAPY INCLUDING BOTOX IN THE PAST. SHE HAD TORADOL EARLIER TODAY AND THERE WAS NO IMPROVEMENT. SHE HAS AN EXTENSIVE HISTORY OF MIGRAINE HEADACHE AND THIS FEELS EXACTLY THE SAME WITH LEFT SIDED STABBING PAIN BEHIND HER LEFT EYE RADIATING TO THE CENTER. Review of Systems Constitutional: denies: Fever, Chills Ears: denies: Loss of hearing, Ear pain Nose: denies: Rhinorrhea / runny nose, Foreign Body Cardiac: denies: Chest pain / pressure, Palpitations Respiratory: denies: Dyspnea, Cough GI: reports: Nausea. denies: Abdominal Pain, Abdominal Swelling Skin: denies: Rash Musculoskeletal: denies: Neck pain, Back pain Neurologic: reports: Headache. 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 : None HEENT: None Psych: None Musculoskeletal: None Derm: None - Past Surgical History Past Surgical History: Yes HEENT: Myringotomy (tubes), Tonsil/Adenoidectomy - Present Medications Home Medications: Ambulatory Orders Medication Instructions Recorded Confirmed Topiramate [Topamax] 100 mg PO DAILY 12/16/17 01/28/19 Amitriptyline HCl 10 mg PO DAILY 01/19/18 01/28/19 Rizatriptan Benzoate [Maxalt] 10 mg PO DAILY PRN 06/19/18 01/28/19 modafiniL [Modafinil] 400 mg PO BID 06/19/18 01/28/19 Erenumab-Aooe [Aimovig 70 mg SQ ONCE 01/28/19 01/28/19 Autoinjector] Methylphenidate [Ritalin] 5 mg PO PRN PRN 01/28/19 01/28/19 Promethazine HCl 25 mg PO PRN PRN 01/28/19 01/28/19 Tramadol HCl 50 mg PO Q6H PRN 01/28/19 01/28/19 Diphenoxylate/Atropine [Lomotil] 1 each PO QID PRN #12 tablet 02/07/19 Hydrocodone/Acetaminophen 1 each PO Q6H PRN #14 tablet 02/07/19 [Hydrocodon-Acetaminophen 5-325] Ondansetron Odt [Zofran] 4 mg TL Q6H PRN #20 tablet 02/07/19 dexAMETHasone [Decadron] 4 mg PO DAILY #5 tablet 02/07/19 SUMAtriptan succinate [Sumatriptan 6 mg SQ DAILY PRN #1 unit 03/29/19 Succinate] - Allergies Allergies/Adverse Reactions: Allergies Allergy/AdvReac Type Severity Reaction Status Date / Time nickel Allergy Rash Verified 06/14/19 19:14 - Social History Does the pt smoke?: Yes Smoking Status: Current every day smoker Does the pt drink ETOH?: Yes Does the pt have substance abuse?: No - Immunizations Immunizations are current?: Yes - POLST Patient has POLST: No PD ED PE NORMAL - General General: Alert and oriented X 3, Other - HEENT HEENT: Atraumatic, PERRL, EOMI - Neck Neck: Supple, no meningeal sign - Cardiac Cardiac: RRR - Respiratory Respiratory: No respiratory distress - Abdomen Abdomen: Normal bowel sounds, Soft - Back Back: No CVA TTP - Derm Derm: Normal color, Warm and dry - Extremities Extremities: No deformity, No tenderness to palpate, Normal ROM s pain, No edema - Neuro Neuro: Alert and oriented X 3 Eye Opening: Spontaneous Motor: Obeys Commands Verbal: Oriented GCS Score: 15 - Psych Psych: Normal mood Results - Vitals Vitals: Oxygen O2 Source Room air PD MEDICAL DECISION MAKING - ED course Complexity details: re-evaluated patient, d/w patient, d/w family ED course: 24 YEAR OLD FEMALE WITH A LONG STANDING HISTORY OF MIGRAINE HEADACHE WHO PRESENTED TO THE EMERGENCY DEPARTMENT WITH A RECURRENT SEVERE MIGRAINE HEADACHE. PATIENT WAS TREATED WITH COMPAZINE, BENADRYL, IV FLUID, DECADRON. PATIENT REMAINED STABLE BUT PAIN PERSISTED. PATIENT WAS GIVEN KETAMINE 25 MG IV IN A PIGGY BAG AND HEADACHE IMPROVED MARKEDLY. SHE FELT COMFORTABLE GOING HOME. AT THIS TIME, PATIENT WAS STABLE TO BE DISCHARGED HOME WITH OUTPATIENT WITH HER PCP ON THURSDAY SCHEDULED. PATIENT WAS IN AGREEMENT AND SHE WAS DISCHARGED IN STABLE CONDITION. Departure - Departure Disposition: Home, Self Care Clinical Impression: Migraine headache Condition: Stable Instructions: ED Headache Migraine Follow-Up: Gilberto Castaneda MD [Primary Care Provider] - 06/16/19 Comments: PLEASE FOLLOW UP WITH YOUR PRIMARY CARE DOCTOR OR YOUR NEUROLOGIST SOON POSSIBLE WITHIN 1 WEEK. ' PLEASE RETURN TO THE EMERGENCY DEPARTMENT IF YOU EXPERIENCE A FEVER OF 100.4 OR GREATER, NEW OR CONCERNING SYMPTOMS. Forms: Activity restrictions Discharge Date/Time: 06/14/19 21:49
[2019-06-14] MEDS ORDERED: diphenhydrAMINE INJ 50 MG/ML VIAL IVP STA (19:42)
[2019-06-14] MEDS ORDERED: KETAMINE 500 MG/10 ML VIAL IVP STA (20:40)
[2019-06-14 21:19] VITALS: BP 123/84
== END 2019-06-14 21:49 | disposition home or self-care (01) ==
LOC: ED 19:09
DX: G43.909 Migraine, unspecified, not intractable, without status migrainosus (principal); F17.200 Nicotine dependence, unspecified, uncomplicated
CPT/HCPCS: 96361; 96374; 96375; 99284; 99285; J1200

== ENCOUNTER 2019-06-16 22:14 | Emergency (ER) | payer OTHER ==
[2019-06-16 22:24] VITALS: BP 118/70
--- NOTE | 2019-06-17 01:27 | ED Physician Documentation ---
PD HPI SKIN - Stated complaint Stated Complaint: RT ARM REDNESS/SWELLING - IV SITE - Chief complaint Chief Complaint: Ext Problem - History obtained from History obtained from: Patient - History of Present Illness Timing - onset: Today Timing - details: Gradual onset Location: RUE Quality / character: Burning, Discolored Similar symptoms before: Has not had sx before Recently seen: Emergency Dept - Additional information Additional information: c/o red streak from right AC fossa at IV site (was in ED yesterday and this IV site was started and used for IV medications to treat migraine OLIVERA), streak extends to mid-upper arm. mild tenderness, burning. 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 : None HEENT: None Psych: None Musculoskeletal: None Derm: None - Past Surgical History Past Surgical History: Yes HEENT: Myringotomy (tubes), Tonsil/Adenoidectomy - Present Medications Home Medications: Ambulatory Orders Medication Instructions Recorded Confirmed Topiramate [Topamax] 100 mg PO DAILY 12/16/17 01/28/19 Amitriptyline HCl 10 mg PO DAILY 01/19/18 01/28/19 Rizatriptan Benzoate [Maxalt] 10 mg PO DAILY PRN 06/19/18 01/28/19 modafiniL [Modafinil] 400 mg PO BID 06/19/18 01/28/19 Erenumab-Aooe [Aimovig 70 mg SQ ONCE 01/28/19 01/28/19 Autoinjector] Methylphenidate [Ritalin] 5 mg PO PRN PRN 01/28/19 01/28/19 Promethazine HCl 25 mg PO PRN PRN 01/28/19 01/28/19 Tramadol HCl 50 mg PO Q6H PRN 01/28/19 01/28/19 Diphenoxylate/Atropine [Lomotil] 1 each PO QID PRN #12 tablet 02/07/19 Hydrocodone/Acetaminophen 1 each PO Q6H PRN #14 tablet 02/07/19 [Hydrocodon-Acetaminophen 5-325] Ondansetron Odt [Zofran] 4 mg TL Q6H PRN #20 tablet 02/07/19 dexAMETHasone [Decadron] 4 mg PO DAILY #5 tablet 02/07/19 SUMAtriptan succinate [Sumatriptan 6 mg SQ DAILY PRN #1 unit 03/29/19 Succinate] Cephalexin [Keflex] 500 mg PO Q6H #20 capsule 06/17/19 - Allergies Allergies/Adverse Reactions: Allergies Allergy/AdvReac Type Severity Reaction Status Date / Time nickel Allergy Rash Verified 06/16/19 22:23 - Social History Does the pt smoke?: Yes Smoking Status: Current every day smoker Does the pt drink ETOH?: Yes Does the pt have substance abuse?: No - Immunizations Immunizations are current?: Yes - POLST Patient has POLST: No PD ED PE NORMAL - Vitals Vital signs reviewed: Yes - General General: Alert and oriented X 3, No acute distress, Well developed/nourished PD ED PE EXPANDED - Extremities BAYLEE UE/Hands Visual: 1 - rash (narrow, faint erythematous streak that is minimally tender, not firm (no palpable cord), and without fluctuance or abscess collection) Results - Vitals Vitals: Vital Signs - 24 hr 06/16/19 06/16/19 06/17/19 22:20 23:10 00:49 Temperature 36.6 C Heart Rate 90 Respiratory 16 16 15 Rate Blood Pressure 118/70 O2 Saturation 98 06/17/19 06/17/19 01:45 01:48 Temperature Heart Rate 79 Respiratory 16 16 Rate Blood Pressure O2 Saturation 97 Oxygen O2 Source Room air PD MEDICAL DECISION MAKING - ED course Complexity details: considered differential, d/w patient Departure - Departure Disposition: 01 Home, Self Care Clinical Impression: Cellulitis Condition: Good Instructions: ED Infec Skin Cellulitis Follow-Up: Gilberto Castaneda MD [Primary Care Provider] - Prescriptions: Cephalexin [Keflex] 500 mg PO Q6H #20 capsule Discharge Date/Time: 06/17/19 01:53
[2019-06-17] MEDS ORDERED: cephALEXin 250 MG CAPSULE PO STA (01:42)
== END 2019-06-17 01:53 | disposition home or self-care (01) ==
LOC: ED 22:14
DX: L03.113 Cellulitis of right upper limb (principal); F17.200 Nicotine dependence, unspecified, uncomplicated
CPT/HCPCS: 99282; 99283; A9270

== ENCOUNTER 2019-06-26 14:39 | Emergency (ER) | payer OTHER ==
[2019-06-26 14:49] VITALS: BP 113/66
--- NOTE | 2019-06-26 14:58 | ED Physician Documentation ---
PD HPI URI - Stated complaint Stated Complaint: COUGH, RUNNY NOSE, CONGESTION - Chief complaint Chief Complaint: Resp - History obtained from History obtained from: Patient - History of Present Illness Timing - onset: Other (She has been sick for about 6 days, it started in her sinuses and then moved down in her chest. She has a nonproductive cough. She had a fever at the outset but not currently. No shortness of breath. No recent travel.) Review of Systems Constitutional: denies: Fever, Chills, Fatigue Nose: reports: Rhinorrhea / runny nose Throat: denies: Sore throat Respiratory: reports: Cough. 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 HEENT: None Psych: None Musculoskeletal: None Derm: None - Past Surgical History Past Surgical History: Yes HEENT: Myringotomy (tubes), Tonsil/Adenoidectomy - Present Medications Home Medications: Ambulatory Orders Medication Instructions Recorded Confirmed Topiramate [Topamax] 100 mg PO DAILY 12/16/17 01/28/19 Amitriptyline HCl 10 mg PO DAILY 01/19/18 01/28/19 Rizatriptan Benzoate [Maxalt] 10 mg PO DAILY PRN 06/19/18 01/28/19 modafiniL [Modafinil] 400 mg PO BID 06/19/18 01/28/19 Erenumab-Aooe [Aimovig 70 mg SQ ONCE 01/28/19 01/28/19 Autoinjector] Methylphenidate [Ritalin] 5 mg PO PRN PRN 01/28/19 01/28/19 Promethazine HCl 25 mg PO PRN PRN 01/28/19 01/28/19 Tramadol HCl 50 mg PO Q6H PRN 01/28/19 01/28/19 Diphenoxylate/Atropine [Lomotil] 1 each PO QID PRN #12 tablet 02/07/19 Hydrocodone/Acetaminophen 1 each PO Q6H PRN #14 tablet 02/07/19 [Hydrocodon-Acetaminophen 5-325] Ondansetron Odt [Zofran] 4 mg TL Q6H PRN #20 tablet 02/07/19 dexAMETHasone [Decadron] 4 mg PO DAILY #5 tablet 02/07/19 SUMAtriptan succinate [Sumatriptan 6 mg SQ DAILY PRN #1 unit 03/29/19 Succinate] Cephalexin [Keflex] 500 mg PO Q6H #20 capsule 06/17/19 Albuterol Sulf [Ventolin Hfa 1 - 2 puffs INH Q4HR PRN #1 inhaler 06/26/19 Inhaler] Benzonatate [Tessalon Perle] 100 - 200 mg PO TID PRN #30 capsule 06/26/19 - Allergies Allergies/Adverse Reactions: Allergies Allergy/AdvReac Type Severity Reaction Status Date / Time nickel Allergy Rash Verified 06/26/19 14:49 - Social History Does the pt smoke?: Yes Smoking Status: Current every day smoker Does the pt drink ETOH?: Yes Does the pt have substance abuse?: No - Immunizations Immunizations are current?: Yes - POLST Patient has POLST: No PD ED PE NORMAL - Vitals Vital signs reviewed: Yes - General General: Alert and oriented X 3, No acute distress - HEENT HEENT: Pharynx benign - Neck Neck: Supple, no meningeal sign - Cardiac Cardiac: RRR - Respiratory Respiratory: No respiratory distress, Clear bilaterally - Abdomen Abdomen: Non tender - Derm Derm: Normal color, Warm and dry - Extremities Extremities: No edema, No calf tenderness / cord - Neuro Neuro: Alert and oriented X 3, Normal speech Results - Vitals Vitals: Vital Signs - 24 hr 06/26/19 14:46 Temperature 37.1 C Heart Rate 77 Respiratory 16 Rate Blood Pressure 113/66 O2 Saturation 100 Oxygen O2 Source Room air Departure - Departure Disposition: 01 Home, Self Care Clinical Impression: Upper respiratory infection Qualifiers: URI type: unspecified viral URI Qualified Code(s): J06.9 - Acute upper respiratory infection, unspecified Condition: Good Record reviewed to determine appropriate education?: Yes Instructions: ED URI Viral Prescriptions: Albuterol Sulf [Ventolin Hfa Inhaler] 1 - 2 puffs INH Q4HR PRN #1 inhaler PRN Reason: Shortness Of Air/Wheezing Benzonatate [Tessalon Perle] 100 - 200 mg PO TID PRN #30 capsule PRN Reason: Cough Comments: Your symptoms and exam are consistent with a viral upper respiratory tract infection. Return if you develop fevers or shortness of breath or otherwise worsen. Follow-up with your doctor at the end of the week if not better.
== END 2019-06-26 15:07 | disposition home or self-care (01) ==
LOC: ED 14:39
DX: J06.9 Acute upper respiratory infection, unspecified (principal); F17.200 Nicotine dependence, unspecified, uncomplicated
CPT/HCPCS: 99282; 99284